=== PATIENT | male | born 1950 | race Caucasian/White ===

== ENCOUNTER 2020-03-27 15:02 | Outpatient (CLI) | payer MEDICARE, OTHER, SELFPAY ==
--- NOTE | ~2020-03-27 | CT_ITS ---
EXAMINATION: CT chest abdomen pelvis wo con DATE: 03/27/2020 15:40 INDICATION: Hemoptysis. Cough, shortness of breath. Abdominal pain. Bloating. TECHNIQUE: Computed tomography (CT) of the chest, abdomen, and pelvis was performed without intraveno us contrast. Automated exposure control and iterative reconstruction technique were employed. Exam do se: 1812.12 mGy-cm total exam DLP. COMPARISON: None FINDINGS: CHEST CT: Left-sided pacemaker device with leads in right atrium and right ventricular apex. Cardiomegaly. No pericardial or pleural effusion. No thoracic aortic aneurysm. There is aortic and gr eat vessel and coronary artery atherosclerotic calcification. Status post sternotomy. Mild subcarinal lymphadenopathy including subcarinal node measuring up to 14 x 19.4 mm. Otherwise no hilar or mediastinal mass lesion or lymphadenopathy. There are predominantly peripheral scattered areas of reticular interstitial densities which may be d ue to mild infiltrate, atelectasis or usual interstitial pneumonia. ABDOMEN/PELVIS CT: Mild ascites. There is surface nodularity of the liver and splenomegaly, suggesting cirrhosis the spl een measures up to 17.7 cm maximal vertical dimension. No hepatic, splenic, pancreatic, and adrenal s pace-occupying mass lesion evident on this limited noncontrast examination. 5.7 cm right renal cyst. 2.2 cm left renal cyst. No urinary tract calculus or hydroureteronephrosis. The urinary bladder is unremarkable. Prostate gla nd and seminal vesicles are unremarkable. There is extensive atherosclerotic calcification of the abdominal aorta but no abdominal aortic aneur ysm. No intraperitoneal or retroperitoneal or pelvic mass lesion or adenopathy is evident. Normal appendix. There is diverticulosis of the colon; no CT evidence of diverticulitis. No bowel obstruction, pneumat osis or intraperitoneal free air. Very small fat-containing umbilical hernia. Small fat-containing inguinal hernias. There is severe degenerative disease and mild retrolisthesis at L5-S1. No suspicious osteolytic or osteoblastic lesions are noted. IMPRESSION: Mild nonspecific subcarinal lymphadenopathy Scattered interstitial reticular densities in the peripheral lung denis, which may be due to mild at electasis, interstitial pneumonitis and/or usual interstitial pneumonia Cirrhosis, splenomegaly and mild ascites Bilateral renal cysts Diverticulosis of the colon Reviewed, dictated and finalized at [facility]. Reviewed, dictated and finalized at location B. [employer] IMPRESSION: Mild nonspecific subcarinal lymphadenopathy Scattered interstitial reticular densities in the peripheral lung denis, which may be due to mild atelectasis, interstitial pneumonitis and/or usual intersti tial pneumonia Cirrhosis, splenomegaly and mild ascites Bilateral renal cysts Diverticulosis of the colon
== END 2020-03-27 15:03 | disposition home or self-care (01) ==
PROVIDERS: PCP Family Medicine; Visit Provider Family Medicine
DX: R04.2 Hemoptysis (principal); R10.9 Unspecified abdominal pain; R59.0 Localized enlarged lymph nodes; K74.60 Unspecified cirrhosis of liver; R16.1 Splenomegaly, not elsewhere classified; K57.90 Diverticulosis of intestine, part unspecified, without perforation or abscess without bleeding
CPT/HCPCS: 71250; 74176

== ENCOUNTER 2020-07-14 22:39 | Emergency (ER) | payer MEDICARE, OTHER, SELFPAY ==
[2020-07-14] VITALS (12 sets, daily range): BP systolic 100–115; BP diastolic 50–62; PULSE 60; RESP 11–19; TEMP 36.7; O2SAT 96–100
--- NOTE | ~2020-07-14 | XR_ITS ---
EXAMINATION: XR chest 2V DATE: 07/14/2020 23:01 INDICATION: Chest pain. Acute bronchitis. TECHNIQUE: frontal and lateral views of the chest were obtained. COMPARISON: Chest CT dated 03/27/2020 FINDINGS: The lungs are clear with no focal airspace opacities, pulmonary edema, pleural effusion or pneumothor ax. Heart size is normal with small pericardial fat pad extending between the apex and the costophren ic angle. Median sternotomy wires and mediastinal surgical clips are seen, likely from prior coronary artery bypass grafting. Dual lead pacemaker seen with leads projecting over the expected locations o f the right atrium and right ventricle. Bones and soft tissues are unremarkable. IMPRESSION: 1. No acute cardiopulmonary disease. Reviewed, dictated and finalized at location [facility].
--- NOTE | 2020-07-14 22:40 | ECG_ITS ---
Measurements Intervals [place] Rate: 60 P: 117 HI: 227 QRS: 74 QRSD: 105 T: 66 QT: 449 QTc: 449 Interpretive Statements ELECTRONIC ATRIAL PACEMAKER RSR' IN V1 OR V2, CONSIDER RIGHT VENTRICULAR HYPERTROPHY OR RIGHT VCD BORDERLINE ST-T WAVE ABNORMALITY- INFERIOR LEADS BORDERLINE ECG Electronically Signed On 07-15-2020 7:08:57 CDT by Krishna Latham D.O.
[2020-07-14 23:04] LABS: Basophils Percent Auto 0.4 % (0.2-1.2); Eosinophils Percent Auto 0.9 % (0-4.4); Hematocrit 26.8 % (42.0-52.0); Hemoglobin 8.4 g/dL (14.0-18.0); Immature Granulocyte Absolute 0.01 K/mm3 (0.00-0.031); Immature Granulocyte Percent A 0.2 % (0-0.5); Lymphocytes Absolute Auto 1.22 K/mm3 (0.9-3.2); Lymphocytes Percent Auto 27.4 % (18.3-44.2); Mean Corpuscular HGB Conc 31.3 g/dl (32-36); Mean Corpuscular Hemoglobin 25.9 pg (26-34); Mean Corpuscular Volume 82.7 fl (80-100); Mean Platelet Volume 11.2 fl (7.4-10.4); Monocytes Absolute Auto 0.4 K/mm3 (0.1-0.6); Monocytes Percent Auto 9.4 % (2.6-8.5); Neutrophils Absolute Auto 2.7 K/mm3 (1.3-6.7); Neutrophils Percent Auto 61.7 % (45.5-73.1); Platelet Count Result 127 k/mm3 (150-375); Red Blood Count 3.24 M/mm3 (4.6-6.20); Red Cell Distribution Width 17.3 % (11.5-14.5); White Blood Count 4.5 K/mm3 (4.5-10.0)
[2020-07-14 23:26] LABS: Troponin I < 0.012 ng/mL (0.000-0.034)
[2020-07-14 23:30] LABS: INR 1.3; Prothrombin Time 16.5 Seconds (11.1-14.7)
[2020-07-14 23:31] LABS: Partial Thromboplastin Time 33.5 SECONDS (22.3-36.8)
[2020-07-14 23:43] LABS: Anion Gap 9 mmol/L (8-16); Blood Urea Nitrogen 30 mg/dL (9-20); Calcium 10.1 mg/dL (8.4-10.2); Carbon Dioxide 24 mmol/L (22-30); Chloride 103 mmol/L (98-107); Estimated CRCL calculation 46 ml/min; Estimated Glomerular Filt Rate 43; Glucose 130 mg/dL (75-110); Sodium 136 mmol/L (137-145)
--- NOTE | 2020-07-14 23:50 | ED.GENADULT ---
HPI - General Adult General Chief complaint: Chest Pain Stated complaint: cp Time Seen by Provider: 07/14/20 23:11 Source: patient History of Present Illness HPI narrative: Patient is a 69 y/o male complaining of sharp, stabbing chest pain starting 1-2 hours ago. He states that his pain is located in mid sternal area with no radiation. He rates pain as 10/10 initially. However, he states that he has no pain at this time. He took some Nitro which he believes helped with his chest pain. Related Data Home Medications Medication Instructions Recorded Confirmed cyanocobalamin (vitamin B-12) 2,500 mcg SUBLINGUAL DAILY 12/08/18 10/31/19 2,500 mcg sublingual lozenge lubiprostone 8 mcg capsule 8 mcg PO BID 12/08/18 10/31/19 sotalol 80 mg tablet 80 mg PO DAILY 12/08/18 10/31/19 blood sugar diagnostic #10 each 04/23/19 10/31/19 blood-glucose meter #1 each 04/23/19 10/31/19 lancets 28 gauge #25 each 04/23/19 10/31/19 lancets 30 gauge #25 each 04/23/19 10/31/19 magnesium oxide 500 mg tablet 250 mg PO BID tablet 10/31/19 10/31/19 Allergies Allergy/AdvReac Type Severity Reaction Status Date / Time No Known Allergies Allergy Unverified 04/26/16 14:18 Review of Systems Constitutional: Constitutional: Denies chills, Denies fever(s), Denies headache(s) and Denies weakness Eyes: Eyes: Denies blurry vision ENT: Denies headache(s) and Denies neck pain Cardiovascular: Cardiovascular: Reports chest pain and Denies dyspnea Respiratory: Respiratory: Denies cough and Denies dyspnea Gastrointestinal: Gastrointestinal: Denies abdominal pain, Denies diarrhea, Denies nausea and Denies vomiting Genitourinary: Genitourinary: Denies hematuria and Denies dysuria Musculoskeletal: Musculoskeletal: Denies back pain and Denies neck pain Neurologic: Denies headache(s) and Denies weakness PMFSH Past Medical History Medical History Abdominal pain Acute bronchitis Ascites Chronic rhinitis Cough with hemoptysis Hypogonadism male Low magnesium level Nocturia Family History Family History Mother Hypertension Family history of kidney disease, Onset Age: 58 Father Patient's father is , Onset Age: 58 Family history of cardiovascular disease Family history of lung cancer Sibling Family history of lung cancer, Onset Age: 58 Family history of renal failure Social History Social History Smoking status: Never smoker Alcohol intake: current Exam Const: General: no acute distress and well developed Orientation/consciousness: oriented to person, oriented to place, oriented to time and patient oriented x3 HENMT: Head: normocephalic Ears: external ears normal General nose exam: Normal external nose present Eyes: General: appearance normal, both eyes and all related structures Conjunctivae: conjunctivae normal Neck: Neck: normal visual inspection and full ROM Chest: Chest palpation & inspection: normal inspection of the chest and no tenderness Resp: Effort & Inspection: normal respiratory effort Auscultation: clear to auscultation bilaterally Cardio: Rate: regular rate Rhythm: regular rhythm GI: GI Palp: No abdominal tenderness and Yes Soft to palpation Skin: General skin exam: normal color and turgor normal Neuro: General: oriented to person, oriented to place, oriented to time and patient oriented x3 Cognition (Neuro): normal cognition Extrem: General: normal to inspection, full ROM and no pedal edema Psych: Appearance: grossly normal Mental Status: mental status grossly normal Affect: normal affect Course Reevaluation(s) Reevaluation #1: Discussed with patient about the need for admission. Patient refuses. He is aware of the risks of arrhythmia, sudden , etc. He wishes to leave AMA. He is awake, alert and competent to make decision
[2020-07-15] VITALS (17 sets, daily range): BP systolic 114–136; BP diastolic 59–79; PULSE 60–61; RESP 10–20; O2SAT 97–99
[2020-07-15] MEDS: SODIUM POLYSTYRENE SULFONONATE 15 GM/60 ML BTL PO (02:13)
--- NOTE | 2020-07-15 02:15 | PC.NURSE ---
pt reported he felt better and wanted to leave AMA with . verbalized understanding of AMA risks including , disability, and worsening of condition. agrees to f/u with pcp. assisted to 's vehicle without distress/difficulty.
[2020-07-15 02:18] LABS: Troponin I < 0.012 ng/mL (0.000-0.034)
== END 2020-07-15 02:18 | disposition left against medical advice (07) ==
PROVIDERS: Emergency Provider Emergency Medicine; PCP Family Medicine
DX: R07.2 Precordial pain (principal); E87.5 Hyperkalemia; Z79.01 Long term (current) use of anticoagulants; Z95.0 Presence of cardiac pacemaker; R94.31 Abnormal electrocardiogram [ECG] [EKG]
CPT/HCPCS: 36415; 71046; 80048; 84484; 85025; 85380; 85610; 85730; 93005; 99284; A9270

== ENCOUNTER → 2020-07-22 01:29 | Outpatient (CLI) | payer MEDICARE, OTHER, SELFPAY ==
[2020-07-22 17:24] LABS: SARS-CoV-2 RNA PCR Negative
== END ==
PROVIDERS: PCP Family Medicine; Visit Provider Internal Medicine Gastroenterology
DX: Z01.812 Encounter for preprocedural laboratory examination (principal); Z20.822 Contact with and (suspected) exposure to COVID-19
CPT/HCPCS: C9803; U0003; U0005

== ENCOUNTER 2020-07-25 00:16 | Day surgery (SDC) | payer MEDICARE, OTHER, SELFPAY ==
[2020-07-17 13:22] VITALS: BMI 34.7
[2020-07-25 10:01] LABS: Glucose Point of Care 118 mg/dl (65-105)
[2020-07-25 10:04] VITALS: BP 95/47; PULSE 66; RESP 18; TEMP 36.3; O2SAT 98; BMI 35.3
[2020-07-25] MEDS: LACTATED RINGERS 1,000 ML 150 ML IV CONT (10:16)
--- NOTE | 2020-07-25 10:53 | WPDANESEPPF ---
Anes - Initial Pre Proc Eval Procedure: Operation Date: 07/25/20 11:15 Proposed Procedures p Esophagogastroduodenoscopy - Hadley Bonilla MD Date/Time: 07/25/20 10:53 Surgeon: Hadley Bonilla MD Pre Op Diagnosis: GERD, anemia Patient Data Age: 69 Gender: M Height: 5 ft 8 in Weight: 105.3 kg Last Vital Signs Temp 97.3 F L 07/25/20 10:04 Pulse 66 07/25/20 10:04 Resp 18 07/25/20 10:04 BP 95/47 L 07/25/20 10:04 Pulse Ox 98 07/25/20 10:04 Allergies Allergy/AdvReac Type Severity Reaction Status Date / Time No Known Allergies Allergy Verified 07/25/20 10:00 Home Medications Medication Instructions Recorded Confirmed Type cyanocobalamin (vitamin B-12) 2,500 mcg SUBLINGUAL DAILY 12/08/18 07/25/20 History 2,500 mcg sublingual lozenge sotalol 80 mg tablet 40 mg PO BID 12/08/18 07/25/20 History blood sugar diagnostic #10 each 04/23/19 07/25/20 History blood-glucose meter #1 each 04/23/19 07/25/20 History lancets 28 gauge #25 each 04/23/19 07/25/20 History lancets 30 gauge #25 each 04/23/19 07/25/20 History syringe with needle, safety 3 mL #12 each 04/23/19 07/25/20 Rx 22 gauge x 1 1/2 isosorbide mononitrate 30 mg 30 mg PO DAILY #90 tablet 08/28/19 07/25/20 Rx tablet,extended release 24 hr levothyroxine 75 mcg tablet 75 mcg PO DAILY #90 tablet 10/22/19 07/25/20 Rx ropinirole 0.5 mg tablet 0.5 mg PO BID #180 tablet 12/03/19 07/25/20 Rx fluticasone propionate 50 1 spray NASAL BID #15.8 ml 01/09/20 07/25/20 Rx mcg/actuation nasal spray,suspension esomeprazole magnesium 20 mg 20 mg PO . b.i.d. #180 tablet 04/09/20 07/25/20 Rx tablet,delayed release ramipril 10 mg capsule 10 mg PO DAILY #90 cap 05/06/20 07/25/20 Rx famotidine 40 mg tablet 40 mg PO BID #120 tablet 05/08/20 07/25/20 Rx apixaban 5 mg tablet 5 mg PO BID #180 tablet 05/09/20 07/25/20 Rx allopurinol 100 mg tablet 100 mg PO BID #180 tablet 05/12/20 07/25/20 Rx spironolactone 25 mg tablet 25 mg PO DAILY #90 tablet 05/13/20 07/25/20 Rx escitalopram oxalate 20 mg tablet 10 mg PO DAILY #90 tablet 05/19/20 07/25/20 Rx oxycodone-acetaminophen 10 mg-325 1 tablet PO Q6H PRN #120 tablet 06/30/20 07/25/20 Rx mg tablet indapamide 2.5 mg tablet 2.5 mg PO DAILY #90 tablet 07/08/20 07/25/20 Rx sucralfate 1 gram tablet 1 g PO Q6H #120 tablet 07/15/20 07/25/20 Rx diazepam [Valium] 5 mg PO DAILY 07/17/20 07/25/20 History fentanyl 100 mcg/hr transdermal 1 patch TRANSDERM Q48H #15 each 07/17/20 07/25/20 Rx patch magnesium 100 mg PO HS 07/17/20 07/25/20 History rosuvastatin 20 mg PO DAILY 07/17/20 07/25/20 History Laboratory Tests 07/25/20 09:58 POC Capillary Glucose 118 mg/dl H mg/dl (65-105) Patient hx anesthesia problems: none Family hx anesthesia problems: none PMFSH Past Medical History Medical History (Updated 07/17/20 @ 08:52 by Jose Crook MD) Abdominal pain Acute bronchitis Anemia Ascites Chronic rhinitis Cough with hemoptysis Hypogonadism male Iron deficiency anemia, unspecified (07/14/20) hemoglobin 8.4, increased 8.8 on 07/16/2020 Low magnesium level Nocturia Family History Family History Mother Hypertension Family history of kidney disease, Onset Age: 58 Father Patient's father is , Onset Age: 58 Family history of cardiovascular disease Family history of lung cancer Sibling Family history of lung cancer, Onset Age: 58 Family history of renal failure Social History Social History Smoking packs per day: 1 Smoking cigarettes per day: 20.0 Years smoked: 35 Smoking pack-years: 35.00 Smoking status: Former smoker Tobacco type: cigarettes Alcohol intake: never Alcohol use details: PINT OR MORE A DAY Substance use: current Substance use type: marijuana Other substance usage details: MEDICAL CARD- USES GUMMIE
[2020-07-25 10:57] VITALS: BP 100/49
--- NOTE | 2020-07-25 10:59 | PM.HPGS ---
History of Present Illness History of Present Illness Consent: Risks, benefits, and alternatives have been discussed and questions answered. Patient agrees to proceed with procedure. Chief complaint: GERD, anemia Narrative: Basil Dominguez is a 69 year old male with heart disease s/p pacemaker on eliquis, alcoholic with recent diagnosis of cirrhosis, no recent EGD. Also found to have LEENA, denies overt gib. Had colonoscopy about 5 years ago. Review of Systems Constitutional: Constitutional: Denies headache(s) and Denies weakness Eyes: Eyes: Denies blurry vision ENT: Reports Normal hearing present, Denies headache(s) and Denies neck pain Cardiovascular: Cardiovascular: Denies chest pain and Denies dyspnea Respiratory: Respiratory: Denies dyspnea Gastrointestinal: Gastrointestinal: Reports no additional gastrointestinal complaints Genitourinary: Genitourinary: Denies dysuria Musculoskeletal: Musculoskeletal: Denies neck pain Integumentary/Breasts: Skin/Breast: Denies dry skin Neurologic: Reports Normal hearing present, Denies headache(s) and Denies weakness Psychiatric: Psychiatric: Denies anxiety Endocrine: Endocrine: Denies change in body appearance Hematologic/Lymphatic: Hematologic/Lymphatic: Denies easy bleeding Allergic/Immunologic: Allergic/Immunologic: Denies urticaria PMFSH Past Medical History Medical History (Updated 07/25/20 @ 11:01 by Hadley Bonilla MD) Abdominal pain Acute bronchitis Anemia Ascites Chronic rhinitis Cirrhosis, alcoholic Cough with hemoptysis Hypogonadism male Iron deficiency anemia, unspecified (07/14/20) hemoglobin 8.4, increased 8.8 on 07/16/2020 Low magnesium level Nocturia Family History Family History Mother Hypertension Family history of kidney disease, Onset Age: 58 Father Patient's father is , Onset Age: 58 Family history of cardiovascular disease Family history of lung cancer Sibling Family history of lung cancer, Onset Age: 58 Family history of renal failure Social History Social History Smoking packs per day: 1 Smoking cigarettes per day: 20.0 Years smoked: 35 Smoking pack-years: 35.00 Smoking status: Former smoker Tobacco type: cigarettes Alcohol intake: never Alcohol use details: PINT OR MORE A DAY Substance use: current Substance use type: marijuana Other substance usage details: MEDICAL CARD- USES GUMMIES Last use: DAILY Living arrangements: with family Spiritual care concerns: No Meds Home Medications and Allergies Home Medications Medication Instructions Recorded Confirmed Type cyanocobalamin (vitamin B-12) 2,500 mcg SUBLINGUAL DAILY 12/08/18 07/25/20 History 2,500 mcg sublingual lozenge sotalol 80 mg tablet 40 mg PO BID 12/08/18 07/25/20 History blood sugar diagnostic #10 each 04/23/19 07/25/20 History blood-glucose meter #1 each 04/23/19 07/25/20 History lancets 28 gauge #25 each 04/23/19 07/25/20 History lancets 30 gauge #25 each 04/23/19 07/25/20 History syringe with needle, safety 3 mL #12 each 04/23/19 07/25/20 Rx 22 gauge x 1 1/2 isosorbide mononitrate 30 mg 30 mg PO DAILY #90 tablet 08/28/19 07/25/20 Rx tablet,extended release 24 hr levothyroxine 75 mcg tablet 75 mcg PO DAILY #90 tablet 10/22/19 07/25/20 Rx ropinirole 0.5 mg tablet 0.5 mg PO BID #180 tablet 12/03/19 07/25/20 Rx fluticasone propionate 50 1 spray NASAL BID #15.8 ml 01/09/20 07/25/20 Rx mcg/actuation nasal spray,suspension esomeprazole magnesium 20 mg 20 mg PO . b.i.d. #180 tablet 04/09/20 07/25/20 Rx tablet,delayed release ramipril 10 mg capsule 10 mg PO DAILY #90 cap 05/06/20 07/25/20 Rx famotidine 40 mg tablet 40 mg PO BID #120 tablet 05/08/20 07/25/20 Rx apixaban 5 mg tablet 5 mg PO BID #180 tablet 05/09/20 07/25/20 Rx allopurinol 100 mg tablet 100 mg PO BID #180 tabl
[2020-07-25 11:18] VITALS: BP 91/53; PULSE 60; RESP 15; O2SAT 98
[2020-07-25 11:28] VITALS: BP 104/49; PULSE 60; RESP 21; O2SAT 99
[2020-07-25 11:38] VITALS: BP 100/59; PULSE 60; RESP 26; O2SAT 99
== END 2020-07-25 11:46 | disposition home or self-care (01) ==
PROVIDERS: PCP Family Medicine; Visit Provider Internal Medicine Gastroenterology
PROC: 0DJ08ZZ Inspection of Upper Intestinal Tract, Via Natural or Artificial Opening Endoscopic (ICD-10-PCS; CPT 43235; principal; 2020-07-25 11:15)
DX: R93.3 Abnormal findings on diagnostic imaging of other parts of digestive tract (principal); K74.60 Unspecified cirrhosis of liver; K29.50 Unspecified chronic gastritis without bleeding; K21.9 Gastro-esophageal reflux disease without esophagitis; D64.9 Anemia, unspecified; Z79.01 Long term (current) use of anticoagulants; Z87.891 Personal history of nicotine dependence; F12.90 Cannabis use, unspecified, uncomplicated; E66.8 Other obesity; Z68.35 Body mass index [BMI] 35.0-35.9, adult; Z95.0 Presence of cardiac pacemaker; D50.9 Iron deficiency anemia, unspecified; Z79.899 Other long term (current) drug therapy
CPT/HCPCS: 43239; 82948; 88305; J2001; J2704; J7120

== ENCOUNTER 2020-11-03 14:34 | Emergency (ER) | payer MEDICARE, OTHER, SELFPAY ==
[2020-11-03] VITALS (15 sets, daily range): BP systolic 129–143; BP diastolic 60–76; PULSE 60–74; RESP 14–21; TEMP 36.4–36.7; O2SAT 94–97
--- NOTE | ~2020-11-03 | CT_ITS ---
EXAMINATION: CT abdomen pelvis w con INDICATION: Hepatosplenomegaly, abdominal pain TECHNIQUE: Computed tomographic images of the abdomen and pelvis were obtained after the administrati on of 100 cc of Omnipaque 350 intravenous contrast. The dose-length product (DLP) was 1348.77 mGy-cm. Automated exposure control and iterative reconstruction technique were employed. COMPARISON: 03/27/2020 FINDINGS: Minimal dependent atelectasis is present in the lung bases. The heart size is normal. The l iver is diffusely low in attenuation when compared with the spleen, consistent with hepatic steatosis . There is mild nodularity of the liver surface, consistent with cirrhosis. Prominent periportal lymp h nodes are unchanged and likely reactive. Cysts of the liver measure up to 12 mm in the left hepatic lobe. The enlarged spleen measures 17.5 cm in craniocaudal dimension, not significantly changed. The pancreas, gallbladder, and adrenal glands are normal. Cysts of the kidneys measure up to 5.3 cm on t he right. There is calcified atherosclerosis of the aorta and many of the other arteries. Colonic div erticulosis is present without evidence of diverticulitis. The appendix is normal. There is severe sp ondylosis at L5-S1. IMPRESSION: 1. No acute findings. 2. Cirrhosis with chronic splenomegaly. Reviewed, dictated and finalized at location A.
--- NOTE | 2020-11-03 15:32 | ECG_ITS ---
Measurements Intervals [place] Rate: 60 P: 96 WI: 223 QRS: 51 QRSD: 111 T: 51 QT: 457 QTc: 460 Interpretive Statements ELECTRONIC ATRIAL PACEMAKER NTRAVENTRICULAR CONDUCTION DELAY DELAYED PRECORDIAL R/S TRANSITION BORDERLINE T WAVE ABNORMALITY- ANTERIOR LEADS BORDERLINE ECG Electronically Signed On 11-03-2020 15:54:29 CDT by Krishna Latham D.O.
[2020-11-03 16:04] LABS: Basophils Percent Auto 0.5 % (0.2-1.2); Eosinophils Absolute Auto 0.1 K/mm3 (0-0.3); Eosinophils Percent Auto 1.2 % (0-4.4); Hematocrit 40.7 % (42.0-52.0); Hemoglobin 13.6 g/dL (14.0-18.0); Immature Granulocyte Absolute 0.02 K/mm3 (0.00-0.031); Immature Granulocyte Percent A 0.4 % (0-0.5); Immature Platelet Fraction Pct 5.6 % (0.9-11.2); Lymphocytes Absolute Auto 1.56 K/mm3 (0.9-3.2); Lymphocytes Percent Auto 27.5 % (18.3-44.2); Mean Corpuscular HGB Conc 33.4 g/dl (32-36); Mean Corpuscular Hemoglobin 30.4 pg (26-34); Mean Corpuscular Volume 90.8 fl (80-100); Mean Platelet Volume 10.9 fl (7.4-10.4); Monocytes Absolute Auto 0.5 K/mm3 (0.1-0.6); Neutrophils Absolute Auto 3.5 K/mm3 (1.3-6.7); Neutrophils Percent Auto 61.4 % (45.5-73.1); Platelet Count Result 115 k/mm3 (150-375); Red Blood Count 4.48 M/mm3 (4.6-6.20); Red Cell Distribution Width 14.8 % (11.5-14.5); White Blood Count 5.7 K/mm3 (4.5-10.0)
[2020-11-03 16:14] LABS: Alanine Aminotransferase 22 U/L (4-50); Albumin Level 4.9 g/dL (3.5-5.1); Alkaline Phosphatase 71 U/L (38-126); Anion Gap 12 mmol/L (8-16); Aspartate Amino Transferase 34 U/L (17-59); Bilirubin,Total 1.7 mg/dL (0.2-1.3); Blood Urea Nitrogen 27 mg/dL (9-20); Carbon Dioxide 24 mmol/L (22-30); Chloride 101 mmol/L (98-107); Estimated CRCL calculation 71 ml/min; Estimated Glomerular Filt Rate > 60; Glucose 146 mg/dL (65-110); Lipase 74 U/L (23-300); Potassium 3.6 mmol/L (3.4-5.0); Sodium 137 mmol/L (137-145)
[2020-11-03 17:17] LABS: Add Urine Microscopic? NO; Appearance Urine Clear (Clear); Bilirubin Urine Negative (Negative); Blood Urine Negative (Negative); Color Urine Yellow (Yellow); Glucose Urine UA Negative (Negative); Ketones Urine Negative (Negative); Leukocyte Esterase Ur Negative LEU/UL (Negative); Nitrate Urine Negative (Negative); Protein Urine Negative (Negative); Specific Grav Ur 1.017 (1.001-1.035); Urobilinogen Urine Negative mg/dL (<2.0)
--- NOTE | 2020-11-03 18:35 | ED.ABDPAIN ---
HPI - Abdominal Pain General Chief Complaint: Abdominal Pain Stated Complaint: fluid in abdomen Time Seen by Provider: 11/03/20 18:29 Source: patient and family Mode of arrival: ambulatory Limitations: no limitations History of Present Illness HPI narrative: Patient is 67 years old white male presented to the ED with abdominal pain which started over 1 year ago, work-up showed that the patient have gastritis and currently on Nexium, cirrhosis secondary to alcoholism, last alcohol intake was 3 days ago, ascites,, anemia, and splenomegaly. Related Data Home Medications Medication Instructions Recorded Confirmed cyanocobalamin (vitamin B-12) 2,500 mcg SUBLINGUAL DAILY 12/08/18 07/28/20 2,500 mcg sublingual lozenge sotalol 80 mg tablet 40 mg PO BID 12/08/18 07/28/20 blood-glucose meter #1 each 04/23/19 07/28/20 lancets 28 gauge #25 each 04/23/19 07/28/20 lancets 30 gauge #25 each 04/23/19 07/28/20 diazepam [Valium] 5 mg PO DAILY 07/17/20 07/28/20 magnesium 100 mg PO HS 07/17/20 07/28/20 rosuvastatin 20 mg PO DAILY 07/17/20 07/28/20 ferrous sulfate 325 mg (65 mg 325 mg PO DAILY 07/28/20 07/28/20 iron) tablet,delayed release Allergies Allergy/AdvReac Type Severity Reaction Status Date / Time No Known Allergies Allergy Verified 11/03/20 18:44 Review of Systems Review of Systems: CONSTITUTIONAL: Denies fever, chills, or sweats. EYES: Denies visual changes, redness, or discharge. ENT: Denies rhinorrhea, congestion, sore throat, or otalgia. CARDIOVASCULAR: Denies chest pain, palpitations, or edema. RESPIRATORY: Denies cough or dyspnea. GASTROINTESTINAL: Abdominal pain GENITOURINARY: Denies dysuria or hematuria. SKIN: Denies rash or itching. MUSCULOSKELETAL: Denies back pain, joint pain, or myalgia. NEUROLOGIC: Denies headache, numbness, or weakness. PSYCHIATRIC: Denies anxiety or depression. [facility] Past Medical History Medical History Abdominal pain Acute bronchitis Anemia Ascites BMI 35.0-35.9,adult Chronic low back pain Chronic neck pain Chronic rhinitis Cirrhosis, alcoholic Cough with hemoptysis Gastritis (07/25/20) EGD with Dr. Chacon on 07/25/2020 with mild to moderate gastritis with no active bleeding or ulceration Hypogonadism male Iron deficiency anemia, unspecified (07/14/20) hemoglobin 8.4, increased 8.8 on 07/16/2020 Low magnesium level Nocturia Family History Family History Mother Hypertension Family history of kidney disease, Onset Age: 58 Father Patient's father is , Onset Age: 58 Family history of cardiovascular disease Family history of lung cancer Sibling Family history of lung cancer, Onset Age: 58 Family history of renal failure Social History Social History Smoking packs per day: 1 Smoking cigarettes per day: 20.0 Years smoked: 35 Smoking pack-years: 35.00 Smoking status: Former smoker Tobacco type: cigarettes Alcohol intake: never Alcohol use details: Decreased alcohol use since March. Substance use: current Substance use type: marijuana Other substance usage details: MEDICAL CARD- USES GUMMIES Last use: DAILY Spiritual care concerns: No Exam Narrative: General appearance: Well-developed, well-nourished Skin: Normal color Head: Normocephalic, nontraumatic Eyes: Clear conjunctiva ENT: Oropharynx normal, ears normal, nose normal Neck: Supple, nontender Chest and respiratory: Airway patent, no respiratory distress, no accessory muscle use Heart: Regular rate/rhythm Abdomen: Diffuse abdominal tenderness mainly right upper quadrant, epigastric and left upper quadrant, hepatomegaly, splenomegaly, quiet bowel sounds Vascular: Normal peripheral pulses, normal capillary refill. Musculoskeletal: Normal range of motion, nontender back Neurologic: Alert and oriented ?3,
[2020-11-03 19:08] LABS: Ethanol < 10 mg/dL (<10)
[2020-11-03 19:32] LABS: Magnesium 1.7 mg/dL (1.6-2.3)
--- NOTE | 2020-11-03 20:20 | PC.NURSE ---
At 8:20 PM, patient's came to nurses station to report patient having chest pain. Seen by Dr Martino immediately at bedside. Pt had home supply of nitro, was instructed by Dr Martino to take one dose of nitro. Pt reported relief after one dose, no additional doses needed. EKG completed at [address] Martino.
--- NOTE | 2020-11-03 20:26 | ECG_ITS ---
Measurements Intervals [place] Rate: 60 P: -59 WI: 239 QRS: 50 QRSD: 117 T: 48 QT: 485 QTc: 485 Interpretive Statements ELECTRONIC ATRIAL PACEMAKER INTRAVENTRICULAR CONDUCTION DELAY DELAYED PRECORDIAL R/S TRANSITION BORDERLINE T WAVE ABNORMALITY- ANTERIOR LEADS BASELINE ARTIFACT- V1, V3-V6 BORDERLINE ECG Electronically Signed On 11-05-2020 13:23:55 CDT by Krishna Latham D.O.
== END 2020-11-03 21:31 | disposition home or self-care (01) ==
PROVIDERS: Emergency Medicine; Emergency Provider Emergency Medicine; PCP Family Medicine
DX: R10.9 Unspecified abdominal pain (principal); K70.30 Alcoholic cirrhosis of liver without ascites; F10.10 Alcohol abuse, uncomplicated; D64.9 Anemia, unspecified; D50.9 Iron deficiency anemia, unspecified; Z87.891 Personal history of nicotine dependence; G89.29 Other chronic pain; Z95.0 Presence of cardiac pacemaker; I45.9 Conduction disorder, unspecified
CPT/HCPCS: 36415; 74177; 80053; 80307; 81003; 83690; 83735; 85025; 85055; 93005; 99284; A9270; Q9967

== ENCOUNTER 2020-11-18 07:38 | Outpatient (CLI) | payer MEDICARE, OTHER, SELFPAY ==
--- NOTE | ~2020-11-18 | US_ITS ---
US right upper quadrant DATE: 11/18/2020 08:52 INDICATION: Alcoholic cirrhosis TECHNIQUE: Real-time imaging of liver, pancreas, gallbladder areas COMPARISON: 11/03/2020 CT abdomen pelvis FINDINGS: There is surface nodularity of the liver and coarsened echotexture consistent with cirrhosi s by clinical history. There is hepatopedal portal venous flow. An 11 mm hepatic cyst is noted, with through transmission posterior enhancement. No pancreatic mass lesion is evident. No gallstones or gallbladder wall thickening. Negative sonographic Hamilton's sign. The common bile lashell t measures 5.8 mm, within normal limits. Right renal 5 cm cyst is noted. IMPRESSION: Cirrhosis 11 mm hepatic cyst 5 cm right renal cyst Reviewed, dictated and finalized at [facility]. Reviewed, dictated and finalized at location B.
== END 2020-11-18 07:39 | disposition home or self-care (01) ==
LOC: ANHIMG 07:40
PROVIDERS: PCP Family Medicine; Visit Provider Internal Medicine Gastroenterology
DX: K70.30 Alcoholic cirrhosis of liver without ascites (principal); N28.1 Cyst of kidney, acquired; K76.89 Other specified diseases of liver
CPT/HCPCS: 76705

== ENCOUNTER 2021-09-18 08:59 | Outpatient (CLI) | payer MEDICARE, OTHER, SELFPAY ==
--- NOTE | ~2021-09-18 | US_ITS ---
US right upper quadrant INDICATION: Alcoholic cirrhosis without ascites. PROCEDURE: Realtime right upper abdominal ultrasound. COMPARISON: No prior studies for comparison. FINDINGS: The pancreas is normal without focal mass or pancreatic ductal dilation. Liver echotexture is increased, consistent with fatty infiltration. There is nodularity to the surface of the liver, c onsistent with cirrhosis. There is a liver cyst measuring 9 mm. There is normal directional flow in t he portal vein. There is gallbladder wall thickening measuring 4.5 mm. No stones or sludge. No pericholecystic fluid. Common bile duct measures 4.6 mm. No sonographic Hamilton's sign. IMPRESSION: 1: No bladder wall thickening. This could indicate interstitial edema, chronic liver disease or chron ic cholecystitis. 2: Cirrhosis of the liver. Reviewed, dictated and finalized at location A. IMPRESSION: 1: No bladder wall thickening. This could indicate interstitial edema, chronic liver disease or chronic cholecystitis. 2: Cirrhosis of the liver.
== END 2021-09-18 09:00 | disposition home or self-care (01) ==
PROVIDERS: PCP Family Medicine; Visit Provider Internal Medicine Medical Oncology
DX: K70.30 Alcoholic cirrhosis of liver without ascites (principal)
CPT/HCPCS: 76705

== ENCOUNTER 2021-11-17 15:35 | Outpatient (CLI) | payer MEDICARE, OTHER, SELFPAY ==
--- NOTE | ~2021-11-17 | XR_ITS ---
EXAMINATION: XR lumbar spine min 4V DATE: 11/17/2021 16:46 INDICATION: Low back pain TECHNIQUE: Anteroposterior, lateral, and bilateral oblique views of the lumbar spine, and cone-down l ateral view of the lumbosacral junction were obtained. COMPARISON: 11/03/2020 FINDINGS: There are 2 mm of stable retrolisthesis of C5 on C6. Bone alignment is otherwise maintained . There is no fracture. The vertebral body heights are normal. There is unchanged severe loss of inte rvertebral disc space height at L5-S1. Small degenerative osteophytes project from the anterior endpl ates of multiple vertebral bodies. Calcified atherosclerosis is noted. There is moderate facet osteoa rthritis of the lower lumbar spine. IMPRESSION: 1. Severe lumbar spondylosis at L5-S1 without significant change., Otherwise mild spondylosis. Reviewed, dictated and finalized at location A. IMPRESSION: 1. Severe lumbar spondylosis at L5-S1 without significant change., Otherwise mi ld spondylosis.
--- NOTE | ~2021-11-17 | XR_ITS ---
EXAMINATION: XR thoracic spine 2V DATE: 11/17/2021 16:46 INDICATION: Thoracic spine pain TECHNIQUE: AP, lateral and lateral swimmer's views of the thoracic spine were obtained. COMPARISON: CT, 03/27/2020 FINDINGS: Bone alignment is normal. There is no fracture. The vertebral body heights are maintained. There is mild loss of intervertebral disc space height in the lower thoracic spine. Small degenerativ e osteophytes project from the anterior endplates of multiple vertebral bodies. Calcified atheroscler osis is noted. There are changes of prior cardiac surgery. IMPRESSION: 1. Mild thoracic spondylosis. Reviewed, dictated and finalized at location A.
--- NOTE | ~2021-11-17 | XR_ITS ---
EXAMINATION: XR cervical spine 4-5V DATE: 11/17/2021 16:46 INDICATION: Neck pain. TECHNIQUE: 5 views of cervical spine were obtained. COMPARISON: None. FINDINGS: Bone alignment is normal. Vertebral body heights are normal. There is mildly decreased disc height at C3-C4 and C4-C5 and moderately decreased disc height at C5-C6 and C6-C7. There is multilev el uncovertebral joint osteoarthritis, severe on the left at C5-C6. There is multilevel mild facet minor int osteoarthritis. There is mild central canal stenosis at C3-C4, C4-C5, and C5-C6. No prevertebral soft tissue swelling. IMPRESSION: 1. Moderate cervical spondylosis. Reviewed, dictated and finalized at location A.
--- NOTE | ~2021-11-17 | XR_ITS ---
EXAMINATION: XR chest 2V Exam Date/Time: 11/17/2021 16:35 CDT HISTORY: R06.6 - Hiccough Comparison: 07/14/2020. RESULT: Lines, tubes, and devices: Fractured inferior sternotomy wire, stable position. Left chest pacer wit h intact leads. Mediastinal surgical clips. Lungs and pleura: Ill-defined patchy and streaky opacities at the bilateral aaron. Cardiomediastinal silhouette: Stable. Other: No acute osseous or upper abdominal finding. IMPRESSION: Bilateral hilar opacities most likely related to pulmonary edema. Infection not excluded. Reviewed, dictated and finalized at location K.
== END 2021-11-17 15:36 | disposition home or self-care (01) ==
PROVIDERS: PCP Family Medicine; Referring Provider Internal Medicine Pulmonary Disease; Visit Provider Family Medicine
DX: R06.6 Hiccough (principal); R91.8 Other nonspecific abnormal finding of lung field; M54.42 Lumbago with sciatica, left side; M54.41 Lumbago with sciatica, right side; M47.817 Spondylosis without myelopathy or radiculopathy, lumbosacral region; I70.0 Atherosclerosis of aorta; M47.815 Spondylosis without myelopathy or radiculopathy, thoracolumbar region; M47.812 Spondylosis without myelopathy or radiculopathy, cervical region
CPT/HCPCS: 71046; 72050; 72070; 72110

== ENCOUNTER 2023-06-09 12:33 | Emergency (ER) | payer MEDICARE, OTHER, SELFPAY ==
--- NOTE | ~2023-06-09 | XR_ITS ---
XR chest 2V 06/09/2023 14:07 Indication: Shortness of breath Procedure: 2 view chest Comparison: 11/17/2021 Findings: Status post median sternotomy for CABG. Heart size normal. Pacemaker leads in expected posi tion. No focal air space disease, pulmonary edema, pleural effusion or suspected pneumothorax. Impression: 1: No acute cardiopulmonary disease. Reviewed, dictated and finalized at location B. Impression: 1: No acute cardiopulmonary disease.
[2023-06-09 12:40] VITALS: BP 140/75; PULSE 84; RESP 16; TEMP 37.1; O2SAT 95
--- NOTE | 2023-06-09 13:44 | ECG_ITS ---
SEE SCANNED COPY FOR CONFIRMED REPORT MTDD
--- NOTE | 2023-06-09 13:58 | PC.NURSE ---
pt taken to xray at this time
[2023-06-09 14:09] VITALS: BP 129/80; PULSE 71; RESP 17; O2SAT 93
--- NOTE | 2023-06-09 14:09 | PC.NURSE ---
pt returned to room 4 at this time
[2023-06-09 14:25] LABS: Basophils Percent Auto 0.2 % (0.2-1.2); Eosinophils Percent Auto 0.4 % (0-4.4); Hematocrit 48.5 % (42.0-52.0); Hemoglobin 17.1 g/dL (14.0-18.0); Immature Granulocyte Absolute 0.02 K/mm3 (0.00-0.031); Immature Granulocyte Percent A 0.2 % (0-0.5); Immature Platelet Fraction Pct 7.6 % (0.9-11.2); Lymphocytes Absolute Auto 1.22 K/mm3 (0.9-3.2); Lymphocytes Percent Auto 14.5 % (18.3-44.2); Mean Corpuscular HGB Conc 35.3 g/dl (32-36); Mean Corpuscular Hemoglobin 33.6 pg (26-34); Mean Corpuscular Volume 95.3 fl (80-100); Mean Platelet Volume 10.9 fl (7.4-10.4); Monocytes Absolute Auto 0.5 K/mm3 (0.1-0.6); Monocytes Percent Auto 6.1 % (2.6-8.5); Neutrophils Absolute Auto 6.6 K/mm3 (1.3-6.7); Neutrophils Percent Auto 78.6 % (45.5-73.1); Red Blood Count 5.09 M/mm3 (4.6-6.20); Red Cell Distribution Width 13.5 % (11.5-14.5); White Blood Count 8.4 K/mm3 (4.5-10.0)
[2023-06-09 14:33] LABS: Alanine Aminotransferase 20 U/L (6-50); Albumin Level 4.3 g/dL (3.5-5.1); Alkaline Phosphatase 62 U/L (38-126); Anion Gap 8 mmol/L (4-12); Aspartate Amino Transferase 26 U/L (17-59); Bilirubin,Total 3.2 mg/dL (0.2-1.3); Blood Urea Nitrogen 14 mg/dL (9-20); Calcium 9.9 mg/dL (8.4-10.2); Carbon Dioxide 25 mmol/L (22-30); Chloride 101 mmol/L (98-107); Creatine Kinase 75 U/L (55-170); Estimated CRCL calculation 80 ml/min; Estimated Glomerular Filt Rate > 60; Glucose 165 mg/dL (65-110); INR 1.3; Lipase 46 U/L (23-300); Magnesium 1.4 mg/dL (1.6-2.3); Potassium 3.6 mmol/L (3.4-5.0); Prothrombin Time 16.7 Seconds (11.1-14.7); Sodium 134 mmol/L (137-145)
[2023-06-09 14:34] LABS: Partial Thromboplastin Time 34.8 Seconds (22.3-36.8)
--- NOTE | 2023-06-09 14:35 | ED.GENADULT ---
HPI - General Adult General Chief complaint: Unspecified Stated complaint: full body pain Time Seen by Provider: 06/09/23 13:22 Source: patient, family, RN notes reviewed and old records reviewed Mode of arrival: ambulatory Limitations: no limitations History of Present Illness HPI narrative: This is a 72 year old with history of chronic pain, fibromyalgia, Parkinson who presents with complaint of severe pain . He reports he has pain all over from his scalp to his toes. He has had this pain for years and he is unable to tolerate. He is prescribed percocet 325/10- mg as needed and he has fentanyl patch 100 mcg q 48 hours. He also drinks alcohol daily to help with pain. He state he is losing his desire for hard alcohol. He has chronic back pain and chronic abdominal pain. His doctor wants to refer to pain management for pain pump. He changed his pain patch today. He denies recent issues with vomiting, diarrhea, fever, dysuria, cough. He does have pedal edema. Onset (ago): year(s) Related Data Home Medications Medication Instructions Recorded Confirmed cyanocobalamin (vitamin B-12) 2,500 mcg sublingual DAILY 12/08/18 12/14/22 2,500 mcg sublingual lozenge blood-glucose meter #1 ea 04/23/19 12/14/22 lancets 28 gauge (FreeStyle #25 ea 04/23/19 12/14/22 Lancets) lancets 30 gauge (OneTouch Delica #25 ea 04/23/19 12/14/22 Lancets) ferrous sulfate 325 mg (65 mg 325 mg PO DAILY 07/28/20 12/14/22 iron) tablet,delayed release cannibis BYMOUTH 12/18/20 12/14/22 magnesium oxide 400 mg (241.3 mg 400 mg PO BID 11/19/21 12/14/22 magnesium) tablet syringe with needle 3 mL 21 gauge 06/24/22 12/14/22 x 1 1/2 (BD Integra Syringe) polyethylene glycol 3350 17 17 g PO DAILY PRN constipation 12/14/22 12/14/22 gram/dose oral powder (Miralax) Allergies Allergy/AdvReac Type Severity Reaction Status Date / Time No Known Allergies Allergy Verified 10/01/21 14:48 Review of Systems Constitutional: Constitutional: Reports poor appetite and Denies weakness Cardiovascular: Cardiovascular: Reports chest pain (chronic ), Denies syncope, Denies rapid heart rate, Reports pedal edema, Denies irregular heart rhythm, Reports leg edema and Denies dyspnea Respiratory: Respiratory: Denies chest congestion, Denies hemoptysis, Denies excessive phlegm production and Denies dyspnea Gastrointestinal: Gastrointestinal: Reports abdominal pain (chronic), Denies hematochezia, Denies diarrhea and Denies vomiting Genitourinary: Genitourinary: Denies hematuria, Denies dysuria, Denies penile discharge and Denies testicular pain Musculoskeletal: Musculoskeletal: Denies joint swelling, Denies loss of height and Denies muscle weakness Neurologic: Denies syncope, Denies focal weakness and Denies weakness PMFSH Past Medical History Medical History (Updated 06/09/23 @ 15:52 by Liat Zapien MD) Abdominal pain Acute bronchitis Alternating constipation and diarrhea Anemia Hemoglobin 17.4 on 08/11/2021. Anxiety Ascites Bloating BMI 35.0-35.9,adult BMI 36.0-36.9,adult BMI 38.0-38.9,adult BPH without obstruction/lower urinary tract symptoms Chronic low back pain Spondylosis and degenerative arthritis 11/17/2021. Chronic narcotic dependence chronic narcotic pain medicine Chronic neck pain X-rays of the cervical spine 11/17/2021 with moderate to severe spondylosis and arthritis. Chronic rhinitis Chronic thoracic back pain X-rays 11/17/2021 with mild spondylosis and arthritis. Cirrhosis, alcoholic Colon cancer screening Cough with hemoptysis Dermatitis Diabetic peripheral neuropathy associated with type 2 diabetes mellitus Gastritis (07/25/20) EGD with Dr. Chacon on 07/25/2020 with mild to moderate gastritis with no active bleeding or ulceration Hiccups (~06/05/21) Hypogonadism male total testosterone 139 and free testosterone 17.6 on 10/29/2019. Total testosterone 536 with free testosterone 68.2 on 08/11/2021. Iron deficiency a
[2023-06-09 14:39] LABS: Appearance Urine Clear (Clear); Bacteria Urine None Seen /hpf; Bilirubin Urine 1+ (Negative); Blood Urine Negative (Negative); Color Urine Dark Yellow (Yellow); Glucose Urine UA Trace mg/dL (Negative); Ketones Urine Trace mg/dL (Negative); Leukocyte Esterase Ur Trace LEU/UL (Negative); Nitrate Urine Negative (Negative); Non Pathogenic Casts 0-2; Protein Urine 1+ mg/dL (Negative); RBC Urine 0-2 /hpf (0-2); Specific Grav Ur 1.022 (1.001-1.035); Squamous Epithelial Cell Urine None Seen /hpf (Few); WBC Urine 0-5 /hpf (0-3); pH Urine 7.5 (5.0-9.0)
[2023-06-09 14:43] LABS: Add Urine Microscopic? YES
[2023-06-09 14:52] LABS: Platelet Count Result 91 k/mm3 (150-375)
[2023-06-09 14:53] LABS: Platelet Estimate Decreased (Adequate)
[2023-06-09 14:54] LABS: Atypical Lymphocytes Present; Schistocytes None Seen
[2023-06-09] MEDS: HYDROmorphone HCL INJ (*CRX) 1 MG/ML SYR IV PUSH (15:16)
[2023-06-09 15:19] VITALS: BP 119/77; PULSE 74; RESP 17; O2SAT 95
== END 2023-06-09 16:08 | disposition home or self-care (01) ==
PROVIDERS: Emergency Provider General Practice; PCP Family Medicine
DX: M79.7 Fibromyalgia (principal); G89.4 Chronic pain syndrome; D69.6 Thrombocytopenia, unspecified; K70.30 Alcoholic cirrhosis of liver without ascites; G20.A1 Parkinson's disease without dyskinesia, without mention of fluctuations; N40.1 Benign prostatic hyperplasia with lower urinary tract symptoms; R35.1 Nocturia; E11.42 Type 2 diabetes mellitus with diabetic polyneuropathy; D50.9 Iron deficiency anemia, unspecified; E66.9 Obesity, unspecified; Z68.36 Body mass index [BMI] 36.0-36.9, adult; Z87.440 Personal history of urinary (tract) infections; Z86.2 Personal history of diseases of the blood and blood-forming organs and certain disorders involving the immune mechanism; Z87.891 Personal history of nicotine dependence; Z79.01 Long term (current) use of anticoagulants; Z79.84 Long term (current) use of oral hypoglycemic drugs; I49.1 Atrial premature depolarization; I45.9 Conduction disorder, unspecified
CPT/HCPCS: 36415; 71046; 80053; 81001; 82550; 83690; 83735; 85025; 85055; 85610; 85730; 93005; 96374; 99284; J1170

== ENCOUNTER 2024-05-24 07:58 | Outpatient (CLI) | payer MEDICARE, OTHER, SELFPAY ==
--- NOTE | ~2024-05-24 | US_ITS ---
EXAMINATION: US arterial duplex LE DATE: 05/24/2024 08:56 INDICATION: Peripheral vascular disease suspected clinically TECHNIQUE: Grayscale ultrasound images without and with compression and Doppler ultrasound images of the bilateral lower extremity veins were obtained. COMPARISON: None. FINDINGS: Peak systolic velocity (cm/sec) ; waveform Right lower extremity Common femoral artery: 102; triphasic Profunda femoral artery: 69; triphasic Superficial femoral artery: 107; triphasic Popliteal artery: 71; triphasic Anterior tibial artery: 71; triphasic Posterior tibial artery: 82; triphasic Peroneal artery: 69; triphasic Dorsalis pedis: 64; biphasic Peak systolic velocity (cm/sec) ; waveform Left lower extremity Common femoral artery: 124; triphasic Profunda femoral artery: 60; triphasic Superficial femoral artery: 100; triphasic Popliteal artery: 71; triphasic Anterior tibial artery: 64; triphasic Posterior tibial artery: 88; triphasic Peroneal artery: 73; triphasic Dorsalis pedis: 69; triphasic IMPRESSION: No evidence of peripheral vascular disease based on the current study, as detailed above. Reviewed, dictated and finalized at location A. IMPRESSION: No evidence of peripheral vascular disease based on the current study, as susanne led above.
--- OUTSIDE RECORDS SUMMARY | 2024-05-24 08:07 | XMS_ITS | Encounter Summary ---
Author Organization [facility] Address [address] [facility] [facility] [address] [place] [address] Care Team Providers Care Sheet Metal Assembler And Riveter Name Role Phone Jose Crook MD Primary Care Provider [phone] Jose Crook MD Primary Care Provider [phone] Encounter Details Date Type Department Care Team (Late st Contact Info) Description 02/25/2016 Orders Only [facility] ProviderKeith MD [address] [place] [address] Social History Tobacco Use Types Packs/Day Years Used Date Smoking Tobacco: Former Cigarettes Q uit: 02/07/2001 Alcohol Use Standard Drinks/Week Comments Yes 0 (1 standard drink = 0.6 oz pur e alcohol) Sex and Gender Information Value Date Recorded Sex Assigned at Not on file Legal Sex Male 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 Historical Provider [facility] JENNY MCKEON Final Result documented in this encounter Visit Diagnoses Not on filedocumented in this encounter Care Teams Sheet Metal Assembler And Riveter Relationship Specialty Start Date End Date Jose Crook MD [address] [address] PCP - General 05/07/16 [facility] [address] [facility] [address] [place] [address] PCP - General 06/28/13 05/06/16 documented as of this encounter
--- OUTSIDE RECORDS SUMMARY | 2024-05-24 08:07 | XMS_ITS | Encounter Summary ---
Author Organization [facility] Address [address] [facility] [address] [place] [address] Care Team Providers Care Sugar Presser Name Role Phone Jose Crook MD Primary Care Provider [phone] Encounter Details Date Type Department Care Team (Late st Contact Info) Description 06/09/2016 Orders Only [facility] ProviderKeith MD [facility] [place] [place] [address] Social History Tobacco Use Types Packs/Day Years Used Date Smoking Tobacco: Former Cigarettes Q uit: 02/07/2001 Alcohol Use Standard Drinks/Week Comments Yes 0 (1 standard drink = 0.6 oz pur e alcohol) Sex and Gender Information Value Date Recorded Sex Assigned at Not on file 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 Historical Provider [facility] JENNY MCKEON Final Result documented in this encounter Visit Diagnoses Not on filedocumented in this encounter Care Teams Sugar Presser Relationship Specialty Start Date End Date Jose Crook MD [address] [address] PCP - General 05/07/16 documented as of this encounter
--- OUTSIDE RECORDS SUMMARY | 2024-05-24 08:07 | XMS_ITS | Encounter Summary ---
Author Organization [facility] Address [address] [facility] [address] [place] [address] Care Team Providers Care Automation Manager Name Role Phone Jose Crook MD Primary Care Provider [phone] Encounter Details Date Type Department Care Team (Late st Contact Info) Description 05/27/2016 Orders Only [facility] ProviderKeith MD [place] [address] Social History Tobacco Use Types Packs/Day Years Used Date Smoking Tobacco: Former Cigarettes Q uit: 02/07/2001 Alcohol Use Standard Drinks/Week Comments Yes 0 (1 standard drink = 0.6 oz pur e alcohol) Sex and Gender Information Value Date Recorded Sex Assigned at Not on file Legal 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 Historical Provider [facility] JENNY MCKEON Final Result documented in this encounter Visit Diagnoses Not on filedocumented in this encounter Care Teams Automation Manager Relationship Specialty Start Date End Date Jose Crook MD [address] [address] PCP - General 05/07/16 documented as of this encounter
--- OUTSIDE RECORDS SUMMARY | 2024-05-24 08:07 | XMS_ITS | CONTINUITY OF CARE DOCUMENT ---
Author Name beena hargrove Address Unknown Organization [facility] Address [address] [facility] [address] [place] [address] Phone [phone] Care Team Providers Care Administrative Services Director Name Role Phone Dallin Hitchcock MD Unavailable ANANDA LINDSEY MD Unavailable ANANDA LINDSEY MD Unavailable [phone] INSURANCE PROVIDERS Payer name Policy type / Coverage type Holmes red libertarian ID FOR LIFE [id number] [place] MEDICARE Medicare [id number]
--- OUTSIDE RECORDS SUMMARY | 2024-05-24 08:07 | XMS_ITS | Referral Summary ---
Author Organization [place] [address] Address [address] [place] [id number] Care Team Providers Care Cable Driller Name Role Phone Jose Crook MD Primary Care Provider [phone] Encounters Date Type Department Care Team Description 05/02/2024 Orders Only [facility] [address] [place] [id number] Jon Richard MD Cardiac pacemaker in situ (Primary Dx); Paroxysmal atrial fibrillation (HCC); SSS (sick sinus syndrome) (HCC) 05/02/2024 10:30 AM CDT Office Visit [place] [address] [place] [phone] Mary Jane Hebert NP 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 (Primary Dx); Hx of CABG; Paroxysmal atrial fibrillation (HCC); Cardiac pacemaker in situ 05/02/2024 10:00 AM CDT Ancillary Procedure [facility] [address] [place] [address] [address] [place] [address] SSS (sick sinus syndrome) (HCC); Paroxysmal atrial fibrillation (HCC); Cardiac pacemaker in situ from Last 3 Months Allergies No known active allergies Medications esomeprazole DR (NexIUM) 40 mg capsule take 1 capsule (40MG) by oral route every day 0 06/30/19 13 Active Additional Information Patient taking differently: 20 mg oral 2 times daily, Reported on 05/02/2024 fentaNYL (DURAGESIC) 75 mcg/hr apply 1 patch (75MCG/H) by transdermal route every 72 hours 0 06/30/19 13 Active rosuvastatin (CRESTOR) 20 mg tablet take 1 tablet (20MG) by oral route every day 0 06/30/19 13 Active allopurinol (ZYLOPRIM) 100 mg tablet take 1 tablet by oral route every day 0 0 10/08/19 15 Active HYDROcodone-gustavo taminophen (NORCO) 10-325 mg per tablet take 1 tablet by oral route every 4 - 6 hours as needed for pain 0 0 10/08/19 15 Active Additional Information Patient not taking.Reported on 05/02/2024 nitroglycerin (NITROSTAT) 0.[address] 1 tablet by buccal route at the first sign of an attack; no more than 3 tabs are recommended within a 15 minute period. 25 3 12/13/19 15 Active apixaban (ELIQUIS) 5 mg tablet take 1 tablet by oral route 2 times every day 0 0 03/06/19 16 Active diazePAM (VALIUM) 5 mg tablet take 1 tablet by oral route 2 times every day 0 0 03/06/19 16 Active levothyroxine (SYNTHROID, LEVOTHROID) 75 mcg tablet Take 1 tablet (75 mcg total) by mouth daily Active cyanocobalamin (Vitamin B-12) 2,500 mcg tablet, sublingualIndic ations:Preventi on of Vitamin B12 Deficiency 1 tablet (2,500 mcg total) daily Active isosorbide mononitrate ER (IMDUR) 30 mg 24 hr tablet Take 1 tablet (30 mg total) by mouth daily 90 tablet 3 02/09/19 20 Active magnesium oxide (MAG-OX) 250 mg (150.8 mg elemental) tabletIndicatio ns:hypomagnesem ia 1 tablet (250 mg total) 2 (two) times a day Active coenzyme Q10 100 mg capsule Take 100 mg by mouth 2 (two) times a day Active fluticasone (VERAMYST) 27.5 mcg/actuation nasal sprayIndication s:Allergic Rhinitis Administer 2 sprays into each nostril daily Active acidophilus-pec tin, citrus 100 million cell-10 mg capsule Take by mouth Activ e metFORMIN (GLUCOPHAGE) 500 mg tablet Take 1 tablet (500 mg total) by mouth 2 (two) times a day 06/01/19 23 Active oxyCODONE-aceta minophen (PERCOCET) 10-325 mg per tablet Take by mouth every 6 (six) hours as needed 05/11/19 23 Active promethazine (PHENERGAN) 25 mg tablet TAKE 1 TABLET BY MOUTH THREE TIMES DAILY NEEDED FOR HICCUPS. DO NOT TAKE ZOFRAN WITH PROMETHAZINE 05/18/19 23 Active rOPINIRole (REQUIP) 0.5 mg tablet Take 1 tablet (0.5 mg total) by mouth 2 (two) times a day 05/04/19 23 Active testosterone cypionate (DEPO-TESTOTERO NE) 200 mg/mL injection INJECT 1ML IN THE MUSCLE EVERY 2 WEEKS 06/05/19 23 Active sotaloL (BETAPACE) 80 mg tablet TAKE 1 TABLET DAILY (KEEP UPCOMING APPOINTMENT FOR FUTURE REFILLS) 180 tablet 07/25/19 24 Active furosemide (LASIX) 20 mg tablet 03/28/19 25 Active indapamide (LOZOL) 2.5 mg tablet 02/20/19 25 Active escitalopram (LEXAPRO) 20 mg tablet Take 1 tablet (20 mg total) by mouth daily 03/06/19 25 Active cholecalciferol (Vitamin D3) 5,000 unit tablet Active ferrous sulfate (iron) 325 mg (65 mg of elemental iron) tabletIndicatio ns:Iron Deficiency Anemia Take 1 tablet (325 mg total) by mouth daily with breakfast Active escitalopram (LEXAPRO) 10 mg tablet Take 1 tablet (10 mg total) by mouth daily 12/13/19 19 025 Discontin ued(Alter tatianna therapy) Active Problems Problem Noted Date Diagnosed Date Morbid (severe) obesity due to excess calories 0 06/08/2022 Cardiac pacemaker in situ 01/19/2017 Overview (03/31/2020): Medtronic Dual Pacemaker. Dx; SSS, PAF. Gen change 06/27/2017, chronic leads from 07/06/2002. Office checks Q1 yr. 03/2018-Device Advisory/Recall for potential Circuit Error. 03/27/20 ([facility] office note)-office visits annually/PRN, d/t severe degenerative disease-spine. Coronary artery disease invo lving ramona coronary artery of ramona heart without angina pectoris 11/23/2016 Hx of CABG 11/23/2016 Paroxysmal atrial fibrillation 11/23/2016 Morbid obesity with BMI of 40.0-44.9, adult 11/07 Social History Tobacco Use Types Packs/Day Years Used Date Smoking Tobacco: Former Cigarettes Q uit: 06/23/2002 Smokeless Tobacco: Never Tobacco Cessation:Counseling Given: Not Answered Alcohol Use Standard Drinks/Week Comments Yes 0 (1 standard drink = 0.6 oz pur e alcohol) Several drinks daily Sex and Gender Information Value Date Recorded Sex Assigned at Not on file Legal 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 Gender Identity Not on file Sexual Orientation Not on file Last Filed Vital Signs Vital Sign Reading Time Taken Comments Blood Pressure 118/62 05/02/2024 9:48 AM CDT Pulse 74 05/02/2024 9:48 AM CDT Temperature - - Respiratory Rate - - Oxygen Saturation 95% 05/02/2024 9:48 AM CDT Inhaled Oxygen Concentration - - Weight 107.5 kg (237 lb) 05/02/2024 9:48 AM CDT Height 172.7 cm (5' 8 ) 05/02/2024 9:48 AM CDT Body Mass Index 36.04 05/02/2024 9:48 AM CDT Plan of Treatment Not on file Medical Devices Implanted Type Area [employer] Device Identifier Shelf Expiration Date Model / Serial / Lot Pacemaker-06/09 Implanted: (Quantity not on file) Pacemaker Chest [employer] SSS, PAF INSIGNIA [id number] / [id number] / Procedures Procedure Name Priority Date/Time Associated Diagnosis Comments DEVICE CHECK - IN OFFICE Routine 05/02/2024 9:16 AM CDT SSS (sick sinus syndrome) (HCC) Paroxysmal atrial fibrillation (HCC) Cardiac pacemaker in situ from Last 3 Months Results * DEVICE CHECK - IN OFFICE (05/02/2024 9:16 AM CDT) Anatomical Region Laterality Modality Other Narrative 05/03/2024 7:52 AM CDT Medtronic Dual Pacemaker. Dx; SSS, PAF. Gen change 06/27/2017, chronic leads 07/06/2002. Office checks Q1 yr. Device RECALL for circuit error. Supervising MD: Dr Keys. Office AAI<>DDD Pacemaker evaluation demonstrated appropriate device function. Left pectoral incision well healed without signs of infection noted. Battery function-2.77V, 9.5 years remaining battery life to ISIAH. Appropriate lead measurements noted. Ventricular pacing threshold 2.0V@0.46ms, Sensing 11.2-15.68 mV, lead impedance 2046 ohms. Presenting [id number]-AU (SR). AP-19.6%, LIFEGUARD-<1%. 99 Atrial high rate episodes noted, longest duration 2 minutes, iegm's SVT-AT. 45 Ventricular high rate episodes noted, iegm's SVT-NSVT, 180-202 bpm, longest episode 12 seconds. Medications; Eliquis, Imdur, Sotalol, Crestor. Ventricular amplitude decreased to 4.0V. See scanned report. Office device f/u and ROV with Dr Richard scheduled 05/07/2025. [facility] remote f/u 08/01/2024. Yolanda Balderas RN Jon Richard MD [facility] PROC EDURES Final Result from Last 3 Months Insurance MEDICARE [employer] MEDICARE FOR LIFE MEDICARE FOR LIFE Care Teams Cable Driller Relationship Specialty Start Date End Date Jose Crook MD [address] [employer] [address] [address] PCP - General 05/07/16
--- OUTSIDE RECORDS SUMMARY | 2024-05-24 08:07 | XMS_ITS | Clinical Summary ---
Author Organization [facility] [place] [address] Address [address] [place] [address] Care Team Providers Care Chairman Emeritus Name Role Phone Jose Crook MD Primary Care Provider +1 [phone] Allergies No known active allergies Medications esomeprazole [...] for potential Circuit Error. 03/27/20 ([facility] office note)-office visits annually/PRN, d/t severe degenerative disease-spine. Coronary artery disease invo lving redding coronary artery of redding heart without angina pectoris 11/23/2016 Hx of CABG 11/23/2016 Paroxysmal atrial fibrillation 11/23/2016 Morbid obesity with BMI of 40.0-44.9, adult 11/07 Encounters Date Type Department Care Team Description 05/02/2024 10:30 AM CDT Office Visit [facility] Cardiology [address] [place] [address] [address] [place] [phone] Mary Jane Hebert NP Coronary artery disease involving redding coronary artery of redding heart without angina pectoris (Primary Dx); Hx of CABG; Paroxysmal atrial fibrillation (HCC); Cardiac pacemaker in situ 05/02/2024 10:00 AM CDT Ancillary Procedure [facility] Cardiology [address] [place] [address] [address] [place] [phone] SSS (sick sinus syndrome) (HCC); Paroxysmal atrial fibrillation (HCC); Cardiac pacemaker in situ 05/02/2024 Orders Only [facility] Cardiology [facility] [address] [place] [address] Jon Richard MD Cardiac pacemaker in situ (Primary Dx); Paroxysmal atrial fibrillation (HCC); SSS (sick sinus syndrome) (HCC) from Last 3 Months Medical History Medical History Date Comments Hypertension Hypertension 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 Family History Medical History Relation Name Comments Heart attack Brother 3 1 Myocardial Infa rction; Heart attack Brother 4 2 Myocardial Infa rction; Heart attack Father 2 Myocardial Infa rction; Heart attack Mother 2 Myocardial Infa rction; Relation Name Status Comments Brother 1 1 Alive Brother 2 2 Alive Brother 3 1 Brother 4 2 Father 1 Alive Father 2 Mother 1 Alive Mother 2 Social History Tobacco Use Types Packs/Day Years Used Date Smoking Tobacco: Former Cigarettes Q uit: 06/23/2002 Smokeless Tobacco: Never Tobacco Cessation:Counseling Given: Not Answered Alcohol Use Standard Drinks/Week Comments Yes 0 (1 standard drink = 0.6 oz pur e alcohol) Several drinks daily Sex and Gender Information Value Date Recorded Sex Assigned at Not on file 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 Gender Identity Not on file Sexual Orientation Not on file Obstetrics History Last Filed Vital Signs Vital Sign Reading [...] 05/02/2024 9:48 AM CDT Plan of Treatment Health Maintenance Due Date Last Done Comments Colon Cancer Screening-Colonoscopy 1952 Depression Screening 1952 Fall Risk Assessment 1952 Hepatitis C Screening 1952 DTaP/Tdap/Td Vaccine (1 - Tdap) 12/06/1963 Hepatitis B Screening 1970 Pneumococcal vaccine 65+ (1 of 1 - PCV) 2002 Zoster Vaccine (1 of 2) 2002 Abdominal Aortic Aneurysm (AAA) Screen 2017 Well Visit 65+ 2017 Influenza Vaccine (Season Ended) 2024 Medical Devices Implanted Type Area Metal Engineering Process Worker Device Identifier Shelf Expiration Date Model / Serial / Lot Pacemaker-06/09 Implanted: (Quantity not on file) Pacemaker Chest [employer] SSS, PAF INSIGNIA [id number] / [id number] / Procedures Procedure Name Priority Date/Time Associated [...] 11.2-15.68 mV, lead impedance 2046 ohms. Presenting [id number] (SR). AP-19.6%, SERVICE STATION MANAGER-<1%. 99 Atrial high rate episodes noted, longest duration 2 minutes, iegm's SVT-AT. 45 Ventricular high rate episodes noted, ie's SVT-NSVT, 180-202 bpm, longest episode 12 seconds. Medications; Eliquis, Imdur, Sotalol, Crestor. Ventricular amplitude decreased to 4.0V. See scanned report. Office device f/u and ROV with Dr Richard scheduled 05/07/2025. [facility] remote f/u 08/01/2024. Yolanda Balderas, NOEMÍ Jon Richard MD [facility] C[facility] SERVICES PROC EDURES Final Result from Last 3 Months Insurance MEDICARE FOR LIFE MEDICARE FOR LIFE MEDICARE FOR LIFE Care Teams Chairman Emeritus Relationship Specialty Start Date End Date Jose Crook MD [address] [address] PCP - General 05/07/16
== END 2024-05-24 07:59 | disposition home or self-care (01) ==
PROVIDERS: Visit Provider Family Medicine
DX: I73.9 Peripheral vascular disease, unspecified (principal)
CPT/HCPCS: 93925

== ENCOUNTER 2024-09-28 14:15 | Outpatient (CLI) | payer MEDICARE, OTHER, SELFPAY ==
--- OUTSIDE RECORDS SUMMARY | 2024-09-28 14:19 | XMS_ITS | Encounter Summary ---
Author Organization [facility] Address [address] [facility] [place] [address] Care Team Providers Care Overhauler Helper Name Role Phone Jose Crook MD Primary Care Provider [phone] [phone] Encounter Details Date Type Department Care Team (Late st Contact Info) Description 06/09/2016 Orders Only [facility] ProviderKeith MD [facility] [place] [address] Social History Tobacco Use Types Packs/Day Years Used Date Smoking Tobacco: Former Cigarettes Q uit: 02/07/2001 Alcohol Use Standard Drinks/Week Comments Yes 0 (1 standard drink = 0.6 oz pur e alcohol) Sex and Gender Information Value Date Recorded Sex Assigned at Not on file 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
--- OUTSIDE RECORDS SUMMARY | 2024-09-28 14:19 | XMS_ITS | Encounter Summary ---
Author Organization [facility] Address [address] [facility] [address] [place] [address] Care Team Providers Care Payroll Accounting Manager Name Role Phone Jose Crook MD Primary Care Provider [phone] [phone] Encounter Details Date Type Department Care Team (Late st Contact Info) Description 05/27/2016 Orders Only [facility] ProviderKeith MD [facility] [place] [address] Social History Tobacco Use Types Packs/Day Years Used Date Smoking Tobacco: Former Cigarettes Q uit: 02/07/2001 Alcohol Use Standard Drinks/Week Comments Yes 0 (1 standard drink = 0.6 oz pur e alcohol) Sex and Gender Information Value Date Recorded Sex Assigned at Not on file 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
--- OUTSIDE RECORDS SUMMARY | 2024-09-28 14:19 | XMS_ITS | Encounter Summary ---
Author Organization [facility] Address [address] [facility] [address] [place] [address] Care Team Providers Care Equine Intern Name Role Phone Jose Crook MD Primary Care Provider [phone] [phone] Jose Crook MD Primary Care Provider [phone] [phone] Encounter Details Date Type Department Care Team (Late st Contact Info) Description 02/25/2016 Orders Only [facility] ProviderKeith MD [address] [place] [address] Social History Tobacco Use Types Packs/Day Years Used Date Smoking Tobacco: Former Cigarettes Q uit: 02/07/2001 Alcohol Use Standard Drinks/Week Comments Yes 0 (1 standard drink = 0.6 oz pur e alcohol) Sex and Gender Information Value Date Recorded Sex Assigned at Not on file 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
--- OUTSIDE RECORDS SUMMARY | 2024-09-28 14:19 | XMS_ITS | Clinical Summary ---
Author Organization [facility] [place] [address] Address [address] [place] [address] Care Team Providers Care Tire Spotter Name Role Phone Jose Crook MD Primary Care Provider [phone] [phone] Allergies No known active allergies Medications esomeprazole DR (NexIUM) 40 mg capsule take 1 capsule (40MG) by oral route every day 0 3 Active Additional Information Patient taking differently: 20 mg oral 2 times daily, Reported on 05/02/2024 fentaNYL (DURAGESIC) 75 mcg/hr apply 1 patch (75MCG/H) by transdermal route every 72 hours 0 3 Active rosuvastatin (CRESTOR) 20 mg tablet take 1 tablet (20MG) by oral route every day 0 3 Active allopurinol (ZYLOPRIM) 100 mg tablet take 1 tablet by oral route every day 0 0 5 Active HYDROcodone-gustavo taminophen (NORCO) 10-325 mg per tablet take 1 tablet by oral route every 4 - 6 hours as needed for pain 0 0 5 Active Additional Information Patient not taking.Reported on 05/02/2024 nitroglycerin (NITROSTAT) 0.[address] 1 tablet by buccal route at the first sign of an attack; no more than 3 tabs are recommended within a 15 minute period. 25 3 5 Active apixaban (ELIQUIS) 5 mg tablet take 1 tablet by oral route 2 times every day 0 0 6 Active diazePAM (VALIUM) 5 mg tablet take 1 tablet by oral route 2 times every day 0 0 6 Active levothyroxine (SYNTHROID, LEVOTHROID) 75 mcg tablet Take 1 tablet (75 mcg total) by mouth daily Active cyanocobalamin (Vitamin B-12) 2,500 mcg tablet, sublingualIndic ations:Preventi on of Vitamin B12 Deficiency 1 tablet (2,500 mcg total) daily Active isosorbide mononitrate ER (IMDUR) 30 mg 24 hr tablet Take 1 tablet (30 mg total) by mouth daily 90 tablet 3 0 Active magnesium oxide (MAG-OX) 250 mg (150.8 [...] by mouth 2 (two) times a day 3 Active oxyCODONE-aceta minophen (PERCOCET) 10-325 mg per tablet Take by mouth every 6 (six) hours as needed 3 Active promethazine (PHENERGAN) 25 mg tablet TAKE 1 TABLET BY MOUTH THREE TIMES DAILY NEEDED FOR HICCUPS. DO NOT TAKE ZOFRAN WITH PROMETHAZINE 3 Active rOPINIRole (REQUIP) 0.5 mg tablet Take 1 tablet (0.5 mg total) by mouth 2 (two) times a day 3 Active testosterone cypionate (DEPO-TESTOTERO NE) 200 mg/mL injection INJECT 1ML IN THE MUSCLE EVERY 2 WEEKS 3 Active sotaloL (BETAPACE) 80 mg tablet TAKE 1 TABLET DAILY (KEEP UPCOMING APPOINTMENT FOR FUTURE REFILLS) 180 tablet 4 Active furosemide (LASIX) 20 mg tablet 5 Active indapamide (LOZOL) 2.5 mg tablet 5 Active escitalopram (LEXAPRO) 20 mg tablet Take 1 tablet (20 mg total) by mouth daily 5 Active cholecalciferol (Vitamin D3) 5,000 unit tablet Active ferrous sulfate (iron) 325 mg (65 mg of elemental iron) tabletIndicatio ns:Iron Deficiency Anemia Take 1 tablet (325 mg total) by mouth daily with breakfast Active Active Problems Problem Noted Date Diagnosed Date Morbid (severe) obesity due to excess calories 0 06/08/2022 Cardiac pacemaker in situ 01/19/2017 Overview (03/31/2020): Medtronic Dual Pacemaker. Dx; SSS, PAF. Gen change 06/27/2017, chronic leads from 07/06/2002. Office checks Q1 yr. 03/2018-Device Advisory/Recall for potential Circuit Error. 03/27/20 ([facility] office note)-office visits annually/PRN, d/t severe degenerative disease-spine. 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 Gender Identity Not on file Sexual Orientation [...] 9:48 AM CDT Height 172.7 cm (5' 8) 05/02/2024 9:48 AM CDT Body Mass Index [...] 2017 Well Visit 65+ 2017 Influenza Vaccine (#1) 2024 Medical Devices Implanted Type Area Drive Thru Order Taker Device Identifier Shelf Expiration Date Model / Serial / Lot Pacemaker-3 Implanted: (Quantity not on file) Pacemaker Chest [place] [employer] SSS, PAF INSIGNIA [id number] / [id number] / Insurance MEDICARE FOR LIFE MEDICARE FOR LIFE MEDICARE [facility] FOR LIFE Care Teams Tire Spotter Relationship Specialty Start Date End Date Jose Crook MD [address] [address] PCP - General 05/07/16
[2024-09-28 14:51] LABS: Hematocrit 46.9 % (42.0-52.0); Hemoglobin 15.9 g/dL (14.0-18.0); Immature Granulocyte Percent A 0.4 % (0-0.5); Immature Platelet Fraction Pct 5.9 % (0.9-11.2); Lymphocytes Absolute Auto 1.64 K/mm3 (0.9-3.2); Mean Corpuscular HGB Conc 33.9 g/dl (32-36); Mean Corpuscular Hemoglobin 32.1 pg (26-34); Mean Corpuscular Volume 94.7 fl (80-100); Nucleated Red Blood Cells Absolute Auto 0.000 K/mm3 (0.0-0.012); Nucleated Red Blood Cells Perc 0.0 % (0.0-0.2); Platelet Count Result 113 k/mm3 (150-375); Red Blood Count 4.95 M/mm3 (4.6-6.20); White Blood Count 5.6 K/mm3 (4.5-10.0)
[2024-09-28 14:56] LABS: Add Urine Microscopic? YES; Appearance Urine Cloudy (Clear); Glucose Urine UA Trace mg/dL (Negative); Leukocyte Esterase Ur 2+ LEU/UL (Negative); Nitrate Urine Negative (Negative); Non Pathogenic Casts 0-2; Specific Grav Ur 1.018 (1.001-1.035)
[2024-09-28 15:02] LABS: Hemoglobin A1C 7.0 % (<5.7)
[2024-09-28 15:06] LABS: Alanine Aminotransferase 19 U/L (6-50); Albumin Level 4.2 g/dL (3.5-5.1); Alkaline Phosphatase 57 U/L (38-126); Anion Gap 8 mmol/L (4-12); Aspartate Amino Transferase 31 U/L (17-59); Bilirubin,Total 1.8 mg/dL (0.2-1.3); Blood Urea Nitrogen 19 mg/dL (9-20); Calcium 9.4 mg/dL (8.4-10.2); Carbon Dioxide 32 mmol/L (22-30); Chloride 93 mmol/L (98-107); Cholesterol 112 mg/dL (0-200); Estimated Glomerular Filt Rate > 60; Glucose 217 mg/dL (65-110); HDL Direct 32 mg/dL; Potassium 3.3 mmol/L (3.4-5.0); Sodium 133 mmol/L (137-145); Total Protein 7.6 g/dL (6.3-8.2); Triglycerides 145 mg/dL (<150); Uric Acid 6.6 mg/dL (3.5-8.5)
[2024-09-28 15:19] LABS: Iron 103 ug/dL (49-181)
[2024-09-28 15:23] LABS: MALB Creatinine Ratio 19.0 mg/g (0-30)
[2024-09-28 15:27] LABS: Percent Iron Saturation 31 % (20-50)
[2024-09-28 15:40] LABS: Free T4 Free Thyroxine 1.22 ng/dL (0.78-2.19)
[2024-09-28 15:41] LABS: Thyroid Stimulating Hormone 1.830 uIU/mL (0.465-4.680)
[2024-09-28 15:48] LABS: Prostate Specific Antigen 4.0 ng/mL (< OR = 4.0)
[2024-09-28 15:58] LABS: Ferritin 49.80 ng/mL (11.1-264)
[2024-09-29 07:08] LABS: GGT 162 IU/L (0-65)
== END 2024-09-28 14:16 | disposition home or self-care (01) ==
PROVIDERS: Visit Provider Family Medicine
DX: E11.9 Type 2 diabetes mellitus without complications (principal); E78.2 Mixed hyperlipidemia; E03.9 Hypothyroidism, unspecified; D64.9 Anemia, unspecified; M1A.00X0 Idiopathic chronic gout, unspecified site, without tophus (tophi); R35.1 Nocturia
CPT/HCPCS: 36415; 80048; 80061; 80076; 81001; 82043; 82728; 82977; 83036; 83540; 83550; 84153; 84439; 84443; 84550; 85025; 85055

== ENCOUNTER 2025-01-10 00:51 | Day surgery (SDC) | payer MEDICARE, OTHER, SELFPAY ==
[2025-01-01 09:53] VITALS: BMI 34.7
--- NOTE | 2025-01-01 10:30 | PC.NURSE ---
Spoke with spouse regarding medication Eliquis. Spouse verbalizes understanding that the last dose is to be taken on 01/07/2025 and the Endoscopist will instruct them when to restart after the procedure.
--- OUTSIDE RECORDS SUMMARY | 2025-01-10 00:55 | XMS_ITS | Encounter Summary ---
Author Organization [facility] Address [address] [facility] [address] [facility] [address] [place] [address] Care Team Providers Care Blade Worker Name Role Phone Jose Crook MD Primary Care Provider [phone] [phone] Encounter Details Date Type Department Care Team (Late st Contact Info) Description 05/27/2016 Orders Only [facility] ProviderKeith MD [place] [address] Social History Tobacco Use Types Packs/Day Years Used Date Smoking Tobacco: Former Cigarettes Q uit: 02/07/2001 Alcohol Use Standard Drinks/Week Comments Yes 0 (1 standard drink = 0.6 oz pur e alcohol) Sex and Gender Information Value Date Recorded Sex Assigned at Not on file 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
--- OUTSIDE RECORDS SUMMARY | 2025-01-10 00:55 | XMS_ITS | Encounter Summary ---
Author Organization [facility] Address [address] [facility] [address] [place] [address] Care Team Providers Care Spray Painter Helper Name Role Phone Jose Crook MD Primary Care Provider +1 [phone] Encounter Details Date Type Department Care Team (Late st Contact Info) Description 06/09/2016 Orders Only [facility] ProviderKeith MD [facility] [place] [address] Social History Tobacco Use Types Packs/Day Years Used Date Smoking Tobacco: Former Cigarettes Q uit: 02/07/2001 Alcohol Use Standard Drinks/Week Comments Yes 0 (1 standard drink = 0.6 oz pur e alcohol) Sex and Gender Information Value Date Recorded Sex Assigned at Not on file 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
--- OUTSIDE RECORDS SUMMARY | 2025-01-10 00:55 | XMS_ITS | Encounter Summary ---
Author Organization [facility] Address [address] [facility] [address] [place] [address] Care Team Providers Care Filer Helper Name Role Phone Jose Crook MD Primary Care Provider +1 [phone] Jose Crook MD Primary Care Provider +1 -[phone] Encounter Details Date Type Department Care Team (Late st Contact Info) Description 02/25/2016 Orders Only [facility] ProviderKeith MD [address] [place] [address] Social History Tobacco Use Types Packs/Day Years Used Date Smoking Tobacco: Former Cigarettes Q uit: 02/07/2001 Alcohol Use Standard Drinks/Week Comments Yes 0 (1 standard drink = 0.6 oz pur e alcohol) Sex and Gender Information Value Date Recorded Sex Assigned at Not on file 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
[2025-01-10 12:17] VITALS: BP 130/68; PULSE 60; RESP 18; TEMP 36.4; O2SAT 95
--- NOTE | 2025-01-10 12:23 | P.PNAN_ITS ---
Anes - Initial Pre Proc Eval Procedure: Operation Date: 01/10/25 13:45 Proposed Procedures p Esophagogastroduodenoscopy EGD - Hadley Bonilla MD Date/Time: 01/10/25 12:23 Surgeon: Hadley Bonilla MD Pre Op Diagnosis: Dysphagia, unspecified, GERD Patient Data Age: 74 Gender: M Height: 1.75 m Weight: 106.2 kg Last Vital Signs Temp 36.4 C 01/10/25 12:17 Pulse 60 01/10/25 12:17 Resp 18 01/10/25 12:17 BP 130/68 01/10/25 12:17 Pulse Ox 95 01/10/25 12:17 O2 Del Method Room Air 01/10/25 12:17 Allergies Allergy/AdvReac Type Severity Reaction Status Date / Time No Known Allergies Allergy Verified 01/10/25 12:15 Home Medications ?Medication ?Instructions ?Recorded ?Confirmed ?Type cyanocobalamin (vitamin B-12) 2,500 mcg sublingual SUSHMA LY 12/08/18 01/10/25 History 2,500 mcg sublingual lozenge blood-glucose meter #1 ea 04/23/19 12/10/24 Hist ory lancets 28 gauge (FreeStyle #25 ea 04/23/19 12/10/24 H istory Lancets) lancets 30 gauge (OneTouch Delica #25 ea 04/23/1905/01 History Lancets) ferrous sulfate 325 mg (65 mg 325 mg PO DAILY 07/28/20 01/10/25 History iron) tablet,delayed release magnesium oxide 400 mg (241.3 mg 400 mg PO BID 2 01/10/25 History magnesium) tablet blood sugar diagnostic (FreeStyle #300 ea 03/03/2205/01 Rx Lite Strips) naloxone 4 mg/actuation nasal 1 spray intranasal Q2-3M PRN 12/14/22 01/01/25 Rx spray (Narcan) opioid overdose #2 ea polyethylene glycol 3350 17 17 g PO DAILY PRN constipa tion 12/14/22 01/01/25 History gram/dose oral powder (Miralax) syringe with needle 3 mL 21 gauge #100 ea 10/19/2305/01 Rx x 1 1/2 (BD Integra Syringe) levothyroxine 75 mcg tablet 75 mcg PO DAILY #90 tabs 1 03/21/23 01/10/25 Rx sotalol 80 mg tablet 40 mg (1/2 x 80 mg) PO BID # 180 01/25/24 01/10/25 Rx tabs nitroglycerin 0.4 mg sublingual 0.4 mg sublingual Q5M PRN chest 03/02/24 01/01/25 Rx tablet (Nitrostat) pain #100 tabs rosuvastatin 20 mg tablet 20 mg PO DAILY #90 tabs 03/1001/10/25 Rx ropinirole 0.5 mg tablet 0.5 mg PO BID #180 tabs 05/0801/10/25 Rx apixaban 5 mg tablet (Eliquis) 5 mg PO BID #180 tabs 0 07/23/24 01/10/25 Rx esomeprazole magnesium 20 mg 20 mg PO . b.i.d. #180 ta bs 07/23/24 01/10/25 Rx tablet,delayed release (Nexium 24HR) metformin 500 mg tablet 1,000 mg (2 x 500 mg) PO BID #360 09/18/24 01/10/25 Rx tabs escitalopram oxalate 20 mg tablet 20 mg PO DAILY #90 t abs 09/24/24 01/10/25 Rx (Lexapro) safety needles 25 gauge x 1 (BD #20 ea 10/18/2412/10 Rx Eclipse) testosterone cypionate 200 mg/mL 200 mg IM . every 2 w eeks #10 mL 10/22/24 01/01/25 Rx intramuscular oil promethazine 25 mg tablet 25 mg PO TID PRN hiccups #6 0 tabs 10/23/24 01/01/25 Rx allopurinol 100 mg tablet 100 mg PO BID #180 tabs /01/10/25 Rx diazepam 5 mg tablet (Valium) 5 mg PO BID PRN anxiety #180 tabs 11/26/24 01/01/25 Rx oxycodone-acetaminophen 10 mg-325 1 tablet PO Q6H PRN pain #120 tabs 11/26/24 01/01/25 Rx mg tablet tamsulosin 0.4 mg capsule (Flomax) 0.4 mg PO QHS #90 c aps 12/11/24 01/10/25 Rx fentanyl 100 mcg/hr transdermal 1 patch transdermal Q4 8H #15 ea 12/17/24 01/01/25 Rx patch syringe with needle 3 mL 22 x 1 #100 ea 12/19/24 Rx 1/2 cholecalciferol (vitamin D3) 125 5,000 unit PO DAILY 1 03/03/24 01/10/25 History mcg (5,000 unit) tablet (Vitamin D3) emollient combination no.119 See Rx Instructions topic al . 01/01/25 01/01/25 History (Eucerin Advanced Repair topical b.i.d. PRN dry skin cream) fluticasone propionate 50 1 spray intranasal BID PRN n miguel 01/01/25 01/01/25 History mcg/actuation nasal congestion spray,suspension furosemide 20 mg tablet 40 mg PO QAM edema 01/01/25 01/10/25 History indapamide 2.5 mg tablet 2.5 mg PO QPM 01/01/2501/10 History isosorbide mononitrate 30 mg 30 mg PO QPM 01/01/2506/01 History tablet,extended release 24 hr mupirocin 2 % topical ointment 1 applic topical BID MI N cellulitis 01/01/25 01/01/25 History thiamine HCl (vitamin B1) 250 mg 250 mg PO BID 5 01/10/25 History tablet (Vitamin B-1) Patient hx anesthesia problems: none Family hx anesthesia problems: none Results Review: All pre-operative results and documents have been reviewed as part of the pre- operative evaluation. [facility] Past Medical History Medical History Urinary incontinence BPH with obstruction/lower urinary tract symptoms Elevated liver enzymes GGT elevated at 162 with AST 31 ALT 19 on 09/28/2024. Hypokalemia (09/28/24) potassium is 3.3 on 09/28/2024. Thrombocytopenia (~09/28/24) platelets 113 on 09/28/2024. Peripheral vascular disease Arterial Doppler study of the lower extremities reveals no evidence of peripheral arterial disease on 05/24/2024. Acute non-recurrent maxillary sinusitis At high risk for falls Cellulitis Edema, peripheral Dermatitis Rash Chronic narcotic dependence chronic narcotic pain medicine BPH without obstruction/lower urinary tract symptoms BMI 36.0-36.9,adult BMI 38.0-38.9,adult Obesity (BMI 30-39.9) Polycythemia hemoglobin 17.4, hematocrit 51.7 on 08/11/2021. Hemoglobin 15.8 on 05/21/2022 with use of nocturnal oxygen. Hemoglobin 15.9 on 09/28/2024. Anxiety Hiccups (~06/05/21) Nausea and vomiting Chronic thoracic back pain X-rays 11/17/2021 with mild spondylosis and arthritis. UTI (urinary tract infection) Diabetic peripheral neuropathy associated with type 2 diabetes mellitus Colon cancer screening Alternating constipation and diarrhea Bloating Chronic neck pain X-rays of the cervical spine 11/17/2021 with moderate to severe spondylosis and arthritis. Chronic low back pain Spondylosis and degenerative arthritis 11/17/2021. BMI 35.0-35.9,adult Gastritis (07/25/20) EGD with Dr. Chacon on 07/25/2020 with mild to moderate gastritis with no active bleeding or ulceration Cirrhosis, alcoholic Iron deficiency anemia, unspecified (07/14/20) hemoglobin 8.4, increased 8.8 on 07/16/2020. Hemoglobin 17.4, iron 59 on 08/11/2021. Iron 103 with 31% saturation ferritin 49.8 with hemoglobin 15.9 on 09/28/2024. Anemia Hemoglobin 17.4 on 08/11/2021. Ascites Cough with hemoptysis Abdominal pain Acute bronchitis Chronic rhinitis Nocturia PSA 2.17 on 08/11/2021. PSA 4.0 on 09/28/2024. Low magnesium level Magnesium slightly low at 1.4 on 08/11/2021. Magnesium 1.4 on 05/21/2022. magnesium 1.8 on 06/14/2023. Hypogonadism male total testosterone 139 and free testosterone 17.6 on 10/29/2019. Total testosterone 536 with free testosterone 68.2 on 08/11/2021. Total testosterone 366 with free testosterone 35.8 on 06/14/2023. Total testosterone 753 with free testosterone 7.3 on 09/28/2024. Family History Family History Mother Hypertension Family history of kidney disease, Onset Age: 58 Father Patient's father is , Onset Age: 58 Family history of cardiovascular disease Family history of lung cancer Sibling Family history of lung cancer, Onset Age: 58 Family history of renal failure Social History Social History Smoking packs per day: 0.5 Smoking cigarettes per day: 10.0 Years smoked: 30 Smoking pack-years: 15.00 Smoking status: Former smoker Tobacco type: cigarettes Smoking end date: 07/06/02 Alcohol intake: current Drinks per week: 15 Alcohol use details: Decreased alcohol use since March 2024 Substance use: former Substance use type: does not use Lack of Transportation: No Lack of Food: Never True Current Housing: I Have Housing Concerned About Future Housing: No Difficulty Paying Gas/Electric Bills: No Difficulty Paying for Meds: No Currently Unemployed: No Education: High School Diploma/GED Difficulty w/ Childcare or Family Care: No Living arrangements: with family Spiritual care concerns: No Anes - Eval Final PreProcedure Day of Procedure 01/10/25 12:23 Patient weight: obese Heart: regular rate and rhythm Lungs: decreased breath sounds Airway: Mallampati scale class III Neurological: alert and oriented Last oral intake: >/= 8 hours ASA classification: IV Emergent: no Anesthetic plan: proceed Anesthesia type and monitoring: general GIVS and standard monitoring Results Review: All pre-operative results and documents have been reviewed as part of the pre- operative evaluation. Informed Consent: The patient's anesthetic plan and its attendant risks and benefits were discus sed with the patient/family/POA. Questions were solicited and answers provided to the satisfaction of the patient/family/POA.
[2025-01-10] MEDS: LACTATED RINGERS 1,000 ML 150 ML IV CONT (12:24)
--- NOTE | 2025-01-10 12:24 | PM.HPGS ---
History of Present Illness History of Present Illness Consent: Risks, benefits, and alternatives have been discussed and questions answered. Patient agrees to proceed with procedure. Chief complaint: Dysphagia, unspecified, GERD Narrative: Basil Dominguez is a 74 year old male here for egd because of belching for few months, also known cirrhosis with last office visit 2021, etiology alcohol use. Review of Systems Review of Systems: All systems reviewed & are unremarkable except as noted in HPI and below PMFSH Past Medical History Medical History (Updated 01/10/25 @ 12:26 by Hadley Bonilla MD) Belching Urinary incontinence BPH with obstruction/lower urinary tract symptoms Elevated liver enzymes GGT elevated at 162 with AST 31 ALT 19 on 09/28/2024. Hypokalemia (09/28/24) potassium is 3.3 on 09/28/2024. Thrombocytopenia (~09/28/24) platelets 113 on 09/28/2024. Peripheral vascular disease Arterial Doppler study of the lower extremities reveals no evidence of peripheral arterial disease on 05/24/2024. Acute non-recurrent maxillary sinusitis At high risk for falls Cellulitis Edema, peripheral Dermatitis Rash Chronic narcotic dependence chronic narcotic pain medicine BPH without obstruction/lower urinary tract symptoms BMI 36.0-36.9,adult BMI 38.0-38.9,adult Obesity (BMI 30-39.9) Polycythemia hemoglobin 17.4, hematocrit 51.7 on 08/11/2021. Hemoglobin 15.8 on 05/21/2022 with use of nocturnal oxygen. Hemoglobin 15.9 on 09/28/2024. Anxiety Hiccups (~06/05/21) Nausea and vomiting Chronic thoracic back pain X-rays 11/17/2021 with mild spondylosis and arthritis. UTI (urinary tract infection) Diabetic peripheral neuropathy associated with type 2 diabetes mellitus Colon cancer screening Alternating constipation and diarrhea Bloating Chronic neck pain X-rays of the cervical spine 11/17/2021 with moderate to severe spondylosis and arthritis. Chronic low back pain Spondylosis and degenerative arthritis 11/17/2021. BMI 35.0-35.9,adult Gastritis (07/25/20) EGD with Dr. Chacon on 07/25/2020 with mild to moderate gastritis with no active bleeding or ulceration Cirrhosis, alcoholic Iron deficiency anemia, unspecified (07/14/20) hemoglobin 8.4, increased 8.8 on 07/16/2020. Hemoglobin 17.4, iron 59 on 08/11/2021. Iron 103 with 31% saturation ferritin 49.8 with hemoglobin 15.9 on 09/28/2024. Anemia Hemoglobin 17.4 on 08/11/2021. Ascites Cough with hemoptysis Abdominal pain Acute bronchitis Chronic rhinitis Nocturia PSA 2.17 on 08/11/2021. PSA 4.0 on 09/28/2024. Low magnesium level Magnesium slightly low at 1.4 on 08/11/2021. Magnesium 1.4 on 05/21/2022. magnesium 1.8 on 06/14/2023. Hypogonadism male total testosterone 139 and free testosterone 17.6 on 10/29/2019. Total testosterone 536 with free testosterone 68.2 on 08/11/2021. Total testosterone 366 with free testosterone 35.8 on 06/14/2023. Total testosterone 753 with free testosterone 7.3 on 09/28/2024. Family History Family History Mother Hypertension Family history of kidney disease, Onset Age: 58 Father Patient's father is , Onset Age: 58 Family history of cardiovascular disease Family history of lung cancer Sibling Family history of lung cancer, Onset Age: 58 Family history of renal failure Social History Social History Smoking packs per day: 0.5 Smoking cigarettes per day: 10.0 Years smoked: 30 Smoking pack-years: 15.00 Smoking status: Former smoker Tobacco type: cigarettes Smoking end date: 07/06/02 Alcohol intake: current Drinks per week: 15 Alcohol use details: Decreased alcohol use since March 2024 Substance use: former Substance use type: does not use Lack of Transportation: No Lack of Food: Never True Current Housing: I Have Housing Concerned About Future Housing: No Difficulty Paying Gas/Electric Bills: No Difficulty Paying for Meds: No Currently Unemployed: No Education: High School Diploma/GED Difficulty w/ Childcare or Family Care: No Living arrangements: with family Spiritual care concerns: No Meds Home Medications and Allergies Home Medications ?Medication ?Instructions ?Recorded ?Confirmed ?Type cyanocobalamin (vitamin B-12) 2,500 mcg sublingual DAILY 11/01/19 12/04/25 History 2,500 mcg sublingual lozenge blood-glucose meter #1 ea 04/23/19 12/10/24 History lancets 28 gauge (FreeStyle #25 ea 04/23/19 12/10/24 History Lancets) lancets 30 gauge (OneTouch Delica #25 ea 04/23/19 12/10/24 History Lancets) ferrous sulfate 325 mg (65 mg 325 mg PO DAILY 07/28/20 01/10/25 History iron) tablet,delayed release magnesium oxide 400 mg (241.3 mg 400 mg PO BID 11/19/21 01/10/25 History magnesium) tablet blood sugar diagnostic (FreeStyle #300 ea 03/03/22 12/10/24 Rx Lite Strips) naloxone 4 mg/actuation nasal 1 spray intranasal Q2-3M PRN 12/14/22 01/01/25 Rx spray (Narcan) opioid overdose #2 ea polyethylene glycol 3350 17 17 g PO DAILY PRN constipation 12/14/22 01/01/25 History gram/dose oral powder (Miralax) syringe with needle 3 mL 21 gauge #100 ea 10/19/23 12/10/24 Rx x 1 1/2 (BD Integra Syringe) levothyroxine 75 mcg tablet 75 mcg PO DAILY #90 tabs 01/19/24 01/10/25 Rx sotalol 80 mg tablet 40 mg (1/2 x 80 mg) PO BID #180 01/25/24 01/10/25 Rx tabs nitroglycerin 0.4 mg sublingual 0.4 mg sublingual Q5M PRN chest 03/02/24 01/01/25 Rx tablet (Nitrostat) pain #100 tabs rosuvastatin 20 mg tablet 20 mg PO DAILY #90 tabs 03/21/24 01/10/25 Rx ropinirole 0.5 mg tablet 0.5 mg PO BID #180 tabs 05/17/24 01/10/25 Rx apixaban 5 mg tablet (Eliquis) 5 mg PO BID #180 tabs 07/23/24 01/10/25 Rx esomeprazole magnesium 20 mg 20 mg PO . b.i.d. #180 tabs 07/23/24 01/10/25 Rx tablet,delayed release (Nexium 24HR) metformin 500 mg tablet 1,000 mg (2 x 500 mg) PO BID #360 09/18/24 01/10/25 Rx tabs escitalopram oxalate 20 mg tablet 20 mg PO DAILY #90 tabs 09/24/24 01/10/25 Rx (Lexapro) safety needles 25 gauge x 1 (BD #20 ea 10/18/24 12/10/24 Rx Eclipse) testosterone cypionate 200 mg/mL 200 mg IM . every 2 weeks #10 mL 10/22/24 01/01/25 Rx intramuscular oil promethazine 25 mg tablet 25 mg PO TID PRN hiccups #60 tabs 10/23/24 01/01/25 Rx allopurinol 100 mg tablet 100 mg PO BID #180 tabs 11/06/24 01/10/25 Rx diazepam 5 mg tablet (Valium) 5 mg PO BID PRN anxiety #180 tabs 11/26/24 01/01/25 Rx oxycodone-acetaminophen 10 mg-325 1 tablet PO Q6H PRN pain #120 tabs 11/26/24 01/01/25 Rx mg tablet tamsulosin 0.4 mg capsule (Flomax) 0.4 mg PO QHS #90 caps 12/11/24 01/10/25 Rx fentanyl 100 mcg/hr transdermal 1 patch transdermal Q48H #15 ea 12/17/24 01/01/25 Rx patch syringe with needle 3 mL 22 x 1 #100 ea 12/19/24 Rx 1/2 cholecalciferol (vitamin D3) 125 5,000 unit PO DAILY 01/01/25 01/10/25 History mcg (5,000 unit) tablet (Vitamin D3) emollient combination no.119 See Rx Instructions topical . 01/01/25 01/01/25 History (Eucerin Advanced Repair topical b.i.d. PRN dry skin cream) fluticasone propionate 50 1 spray intranasal BID PRN nasal 01/01/25 01/01/25 History mcg/actuation nasal congestion spray,suspension furosemide 20 mg tablet 40 mg PO QAM edema 01/01/25 01/10/25 History indapamide 2.5 mg tablet 2.5 mg PO QPM 01/01/25 01/10/25 History isosorbide mononitrate 30 mg 30 mg PO QPM 01/01/25 01/10/25 History tablet,extended release 24 hr mupirocin 2 % topical ointment 1 applic topical BID PRN cellulitis 01/01/25 01/01/25 History thiamine HCl (vitamin B1) 250 mg 250 mg PO BID 01/01/25 01/10/25 History tablet (Vitamin B-1) Allergies Allergy/AdvReac Type Severity Reaction Status Date / Time No Known Allergies Allergy Verified 01/10/25 12:15 Vital Signs Vital Signs - 24 hr 01/10/25 12:17 Temperature 97.6 F Pulse Rate 60 Respiratory Rate 18 Blood Pressure 130/68 Pulse Oximetry 95 Oxygen Delivery Room Air Exam Const: General: comfortable and no acute distress HENMT: Face/Nose/Sinus: Normal nares present Eyes: General: appearance normal, both eyes and all related structures Resp: Auscultation: clear to auscultation bilaterally Cardio: Rate: regular rate Rhythm: regular rhythm GI: Inspection: non-distended GI Palp: Yes Soft to palpation Skin: General skin exam: normal color Extrem: General: normal to inspection Psych: Mental Status: mental status grossly normal Assessment and Plan Assessment and plan (1) Belching: Code(s): R14.2 - Eructation Status: Acute Assessment and Plan: egd with bx (2) Cirrhosis, alcoholic: Qualifiers: Ascites presence: unspecified Qualified Code(s): K70.30 - Alcoholic cirrhosis of liver without ascites Code(s): K70.30 - Alcoholic cirrhosis of liver without ascites Status: Acute Assessment and Plan: he will need to reestablish care again with us he should make another appointment in our office
--- NOTE | 2025-01-10 12:33 | S_PTH ---
PATIENT: Basil Dominguez LOC: [facility]#:[id number] AGE/SX: 74/M ROOM: RE01/10/[address]: Hadley Bonilla MD : 1950 BED: DIS: 01/10/2025 SPEC #: [id number] RECD: 01/10/25 12:45 STATUS: OZIEL VALDEZ #: [id number] YESSI: 01/10/25 12:[address]: Hadley Bonilla DEPT: [facility] Surgical RECD BY: Kaci Colmenares ENTERED: 01/10/25 12:46 SP TYPE: Surgical OTHR DR: Jose Crook MD Tissues: A - Small Bowel Bx B - Gastric Biopsy Procedures: Hematoxylin and Eosin Stain Gross and Microscopic Level 4
[2025-01-10 12:34] VITALS: BP 137/71; PULSE 66; RESP 20; O2SAT 96
[2025-01-10 12:44] VITALS: BP 132/75; PULSE 60; RESP 24; O2SAT 95
[2025-01-10 12:54] VITALS: BP 134/78; PULSE 60; RESP 16; O2SAT 96
== END 2025-01-10 13:16 | disposition home or self-care (01) ==
PROVIDERS: PCP Family Medicine; Referring Provider Family Medicine; Visit Provider Internal Medicine Gastroenterology
PROC: 0DJ08ZZ Inspection of Upper Intestinal Tract, Via Natural or Artificial Opening Endoscopic (ICD-10-PCS; CPT 43239; principal; 2025-01-10 13:45)
DX: K29.50 Unspecified chronic gastritis without bleeding (principal); K21.9 Gastro-esophageal reflux disease without esophagitis; K70.30 Alcoholic cirrhosis of liver without ascites; E11.42 Type 2 diabetes mellitus with diabetic polyneuropathy; Z87.891 Personal history of nicotine dependence; E66.9 Obesity, unspecified; Z68.34 Body mass index [BMI] 34.0-34.9, adult
CPT/HCPCS: 43239; 82948; 88305; J2704; J7120